=== PATIENT | female | born 1935 | race Caucasian/White ===

== ENCOUNTER → 2023-12-25 12:50 | Outpatient (REF) | payer MEDICARE, OTHER, SELFPAY | LOC: HWRCS 12:50 | PROVIDERS: ATTENDING PHYSICIAN Internal Medicine Cardiovascular Disease; FAMILY PHYSICIAN Nurse Practitioner Primary Care | DX: I48.0 Paroxysmal atrial fibrillation (principal) | CPT/HCPCS: 93306 ==

== ENCOUNTER 2024-09-18 01:38 | Inpatient (IN) | payer MEDICARE, OTHER, SELFPAY ==
[2024-09-17 18:19] VITALS: BP 157/57
[2024-09-17 18:53] LABS: % Basophils 0.6 % (0-2); % Eosinophils 0.9 % (0-6); % Immature Granulocytes 0.8 % (0-0.5); % Lymphocytes 16.6 % (20.5-51.1); % Monocytes 6.6 % (1.7-9.3); % Neutrophils 74.5 % (42.2-75.2); Absolute Basophils 0.1 10^3/uL (0-0.2); Absolute Eosinophils 0.1 10^3/uL (0-0.7); Absolute Immature Granulocytes 0.1 10^3/uL (0-0.05); Absolute Lymphocytes 1.4 10^3/uL (1.2-3.4); Absolute Monocytes 0.6 10^3/uL (0.1-0.6); Absolute Neutrophils 6.5 10^3/uL (1.4-6.5); Hematocrit 29.1 % (37.0-47.0); Hemoglobin 9.5 g/dL (12.0-16.0); Mean Corp Hgb Conc. 32.6 g/dL (33.0-37.0); Mean Corpuscular Hgb 29.5 pg (27.0-31.0); Mean Corpuscular Volume 90.4 fL (81.0-99.0); Nucleated Red Blood Cells % 0.5 %; Platelet Count 198 10^3/uL (130-400); Red Blood Cell Count 3.22 10^6/uL (4.20-5.40); Red Cell Dist. Width 15.9 % (11.5-14.5); White Blood Cell Count 8.7 10^3/uL (4.8-10.8)
[2024-09-17 19:05] LABS: Lactic Acid 1.4 mmol/L (0.7-2.0)
[2024-09-17 19:14] LABS: ALT (SGPT) 21 U/L (0-35); AST (SGOT) 29 U/L (14-36); Albumin 4.5 g/dl (3.5-5.0); Alkaline Phosphatase 59 U/L (38-126); Blood Urea Nitrogen 20 mg/dl (7-17); Calcium 9.3 mg/dl (8.4-10.2); Carbon Dioxide 28 mmol/L (22-30); Chloride 104 mmol/L (98-107); Glucose 132 mg/dl (70-99); Lipase 110 U/L (23-300); Potassium 4.3 mmol/L (3.5-5.1); Sodium 143 mmol/L (135-145); Total Bilirubin 0.5 mg/dl (0.2-1.3); Total Protein 6.7 g/dl (6.3-8.2); eGFR > 60.00
--- NOTE | 2024-09-17 20:39 | ED.GENMED ---
History of Present Illness
General
Chief Complaint: Abdominal Pain
Source: patient
Exam Limitations: none
Time Seen by Provider: 09/17/24 19:37
History of Present Illness
History of Present Illness:
This is a 88 year old female that comes in c/o abd pain and SOB. Daughter states that last night she was SOB and for the past couple of days she has been c/o abd pain. States that the abd pain has been on and off. States that she is occasionally
SOB, had diarrhea yesterday, has a headache and felt lightheaded. State that she occasionally has Urinary burning. Denies any fever, chills, vomiting.
Past History
Past History
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
(Myasthenia Gravis, Polymyositis, COVID-19, osteoporosis, glaucoma, bilateral nonarteritic ischemic optic neuropathies, oral thrush, Back and neck pain, Headache, ) and Other (Postconcussive syndrome, thymoma?, Postherpetic neuralgia, Hiatal
hernia, UTI, Glaucoma, )
ED Past Surgical History: Cardiac (Aortic valve replacement, CABG, loop recorder implant, Pacer), Cholecystectomy, Orthopedic (Kyphoplasty) and Other (Carpal tunnel release, right eye cataract extraction 2021)
Social History
Tobacco: Non-smoker
Alcohol: None
Drug: None
Personal:
Living: with family
Family History
Family History: Other (Reviewed and noncontributory)
Review of Systems
Review of Systems
All Other Systems: ROS reviewed and negative except as documented in HPI and ROS
Constitutional: Reports no symptoms; Denies fever or chills
EENT: Reports no symptoms
Respiratory: Reports trouble breathing; Denies cough
Cardiac: Reports chest pain
ABD/GI: Reports abdominal pain, nausea and diarrhea; Denies vomiting
: Reports dysuria (occasional); Denies frequency or urgency
Musculoskeletal: Reports no symptoms
Skin: Reports no symptoms
Neurological: Reports headache and other (Lightheaded); Denies dizzy
Psychiatric: Reports no symptoms
Phy Exam
General Physical Exam
General Presentation: no apparent distress
General age: appears stated age
General Skin: warm and dry
General Habitus: elderly
General Mental: alert
General Hydration: appears well hydrated
ENT Exam
ENT Exam: TM's normal, pharynx normal and neck supple
Cardiovascular Exam
Cardiovascular Exam: regular rate/rhythm, no edema and normal peripheral pulses
Pulmonary Exam
Pulmonary Exam: no respiratory distress, chest non tender, no rhonchi, no wheezing, no cough and other (Very fine crackles right base)
Gastrointestinal Exam
Gastrointestinal Exam: soft, no organomegaly, no pulsatile mass, non distended, tender (right sided tenderness with palpation) and other (Hyperactive bowel sounds)
Musculoskeletal Exam
Musculoskeletal Exam: full ROM and no edema
Skin Exam
Skin Exam: normal color, warm/dry and no rash
Psychiatric Exam
Psychiatric Exam: normal mood/affect
Scores
Heart Failure Risk
Heart Failure Risk Score: Yes
History of Stroke or TIA: Yes
History of intubation for respiratory distress: No
Heart rate on ED arrival >/= 110: No
SaO2 <90% on arrival on room air: No
HR >/=110 during 3min walk test (or too ill to perform test): Yes
ECG has acute ischemic changes: No
Urea >/=12mmol/L (BUN 33.6mg/dL): No
Serum CO2>/=35mmol/L: No
Troponin I or T elevated to NM Level (0.4mg/dL): No
NT-proBNP >/=5,000ng/L (5,000pg/ml): No
HF Risk Score: 3
Admission Status: HIGH RISK 15.9% Consider SNF treatment or admission to hospital
Course
Orders/Labs/Results
Orders:
Orders
09/17/24 18:45
Complete Blood Count/With Diff Urgent
Comprehensive Metabolic Panel Urgent
Lactic Acid Urgent
Lipase Urgent
09/17/24 20:37
CT Abd/pelvis W Iv Cont Urgent
Comment:
Reason For Exam: RIGHT SIDED ABD PAIN
CR Chest - 2 Views Urgent
Comment:
Reason For Exam: sob
09/17/24 20:38
0.9% Sodium Chloride 250 ml [Nss] 250 ml IV BOLUS
09/17/24 20:39
Ondansetron Injectable [Zofran] 4 mg IV NOW STA
09/17/24 20:46
Acetaminophen 1000MG/100Ml [Ofirmev] 1,000 mg in 100 ml IV ONCE
Acetaminophen IV Indication:: ED Narcotic Naive Pt-ONCE
09/17/24 20:48
Electrocardiogram (*1) Urgent
Reason for Study: Shortness of Breath
EKG- Treatment ONCE
09/17/24 20:55
NT-proBNP Urgent
Troponin I Urgent
09/17/24 22:24
COVID-19 Antigen Urgent
Source: Nasal Swab
09/17/24 23:20
Urinalysis Reflex To Culture Urgent
Date Specimen was Collected: 09/17/24
Time Specimen was Collected: 23:05
09/17/24 23:35
Ipratropium/Albuterol Sulfate [Duoneb] 3 ml .ROUTE .STK-MED ONE
Abnormal Lab Results
09/17/24
18:45
RBC 3.22 L 10^6/uL
(4.20-5.40)
Hgb 9.5 L g/dL
(12.0-16.0)
Hct 29.1 L %
(37.0-47.0)
MCHC 32.6 L g/dL
(33.0-37.0)
RDW 15.9 H %
(11.5-14.5)
MPV 12.0 H fL
(7.4-10.4)
Abs Immat Gran (auto) 0.1 H 10^3/uL
(0-0.05)
Immature Gran % 0.8 H %
(0-0.5)
Lymphocytes % 16.6 L %
(20.5-51.1)
BUN 20 H mg/dl
(7-17)
Glucose 132 H mg/dl
(70-99)
09/17/24 18:45
09/17/24 18:45
H/H slightly low. Dehydration. Hyperglycemia. Lactic acid normal at 1.4, Lipase normal at 110, Troponin <0.012, Pro-BNP 3010, Urine negative for infection. COVID negative,
Vital Signs
Initial and Last Documented VS:
Initial Vital Signs
Temp Pulse Resp BP Pulse Ox
99.0 F 78 20 157/57 96
09/17/24 18:19 09/17/24 18:19 09/17/24 18:19 09/17/24 18:19 09/17/24 18:19
Last Documented Vital Signs
Temp Pulse Resp BP Pulse Ox
99.0 F 75 24 137/71 98
09/17/24 18:19 09/17/24 23:45 09/17/24 23:29 09/17/24 23:29 09/17/24 23:45
MDM/Problems Addressed
Differential Diagnosis Includes:
UTi, viral GI syndrome,
MDM/Problems Addressed:
This is a 88 year old female that comes in with c/o abd pain. States that this started a couple of days ago and that last night she felt SOB.
Will check labs. CT abd/pelvis. Chest x-ray and medicate for headache pain.
Back into see patient and daughter. Explained that her CT of the abd was negative for anything acute. Chest X=ray shows mild CHF, Patient is negative for COVID, Urine is negative. Patient was up in chair and became hypoxic. Please on Oxygen. Will
admit and give IV Lasix. Hospitalist notified.
Chronic conditions affecting care: CAD
Acute Exacerbation and/or Progression of Chronic Illness: CAD
*Radiology
Radiology exam reviewed: preliminary read by ED provider (Chest-Cardiomegaly with slight increased vascular congestion. ) and radiology read reviewed (CT-NO signficiant acute abnormality identified in the abdomen or pelvis, as described above.
Chest-Mild CHF)
*Pulse Oximetry
Patient hypoxic: no
*International Manager Interpretation
Rate: International Manager- N/A
*Critical Care Note
Total Time (30-74mins, 75-104mins- exclusive of procedures): Not Applicable
ED Attending Note
-
Portions of this chart may have been created with voice recognition software.� Occasional wrong word or��sound alike� substitutions may have occurred due to the inherent limitations of voice recognition software.
Discharge Plan
Departure
Patient Disposition: Admit
Date of Disposition: 09/17/24
Time of Disposition: 23:55
Admit to: Telemetry
Presentation/result/management discussed w/ accepting MD/DO: Hospitalist
Patient with high blood pressure during this ER visit?: Yes
Condition: Good
Covid-19: Negative COVID-19
Discharge Problem:
CHF (congestive heart failure), Hypoxia
Prescriptions:
No Action
atorvastatin 20 mg Tablet
20 mg PO DAILY
mycophenolate mofetil [CellCept] 500 mg Tablet
500 mg PO DAILY
alprazolam [Xanax] 0.25 mg Tablet
0.25 mg PO BID
fentanyl 25 mcg/hr Patch 72 Hour
1 patch TRANSDERMAL Q72H
sertraline [Zoloft] 50 mg Tablet
50 mg PO DAILY
pregabalin [Lyrica] 150 mg Capsule
150 mg PO BID
Prolia 60 mg/mL Syringe
60 mg SC [id number]
Eliquis 5 mg Tablet
5 mg PO BID
aspirin 81 mg Capsule
81 mg PO DAILY
prednisolone acetate 1 % drops,suspension
1 drp LEFT EYE DAILYPRN PRN (Reason: glaucoma discomfort relief)
pantoprazole [Protonix] 40 mg tablet,delayed release (DR/EC)
40 mg PO BID
metoprolol succinate 50 mg tablet extended release 24 hr
50 mg PO DAILY
levothyroxine 100 mcg tablet
100 mcg PO DAILY AT 0700
atropine 1 % drops
1 drp LEFT EYE DAILYPRN PRN (Reason: eye pressure/discomfort)
multivitamin Tablet
1 tab PO DAILY
vitamin B complex Tablet
1 tab PO DAILY
docusate sodium [Colace] 100 mg Capsule
100 mg PO DAILY
Referrals:
Mercedes Duran CRNP [Family Provider] -
Interventions
Interventions:
*Risk Screen - Suicide Last Done: 09/17/24 21:09
*General Assessment Last Done: 09/17/24 18:19
*Neglect/Abuse Screening Last Done: 09/17/24 21:09
PR-Mhwngi-Qtribldlvu Assessment Last Done: 09/17/24 21:09
Discharge Date and Time
Print Language: QATARI
[2024-09-17] MEDS: ZOFRAN 4 MG IV (20:56)
[2024-09-17] MEDS: OFIRMEV 100 IV (20:58)
[2024-09-17] MEDS: NSS 250 IV (21:04)
[2024-09-17 22:42] LABS: COVID-19 Antigen Negative (Negative)
[2024-09-17 22:43] LABS: NT-proBNP 3010 pg/ml; Troponin I < 0.012 ng/ml
[2024-09-17 23:26] LABS: Urine Albumin Trace (Neg - Trace); Urine Bilirubin Negative (Negative); Urine Character Clear (Clear); Urine Color Yellow; Urine Glucose Negative (Negative); Urine Ketone Negative (Negative); Urine Leukocyte Negative (Negative); Urine Nitrite Negative (Negative); Urine Occult Blood Negative (Negative); Urine Specific Gravity 1.015 (<1.030); Urine Urobilinogen Negative (Neg - 1+)
[2024-09-17 23:29] VITALS: BP 137/71
[2024-09-18] VITALS (15 sets, daily range): BP systolic 80–128; BP diastolic 44–80; PULSE 76; O2SAT 94; BMI 23.8
--- NOTE | 2024-09-18 00:18 | HPS.HSE ---
Family Physician
-
Family Physician: Mercedes Duran
Chief Complaint
-
shortness of breath
History of Present Illness
This is a 88-year-old female with past medical history that is significant for myasthenia gravis, aortic stenosis status post aortic valve repair, CAD status post CABG, CHF with diastolic dysfunction, paroxysmal atrial fibrillation, sick sinus
syndrome status post pacemaker placement, frequent bouts of constipation who presents to the emergency department with more recent episodes of shortness of breath and abdominal discomfort.
According to daughter patient had recent episode of constipation which was treated with laxatives and then she developed diarrhea. Since then the patient has been having shortness of breath. Patient states she is unable to sleep mostly due to
abdominal discomfort but may also have orthopnea. She states she was wheezing and has a mild nonproductive cough. 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 She denies having any chest
pain at rest. She denies diaphoresis. She denies palpitations nausea or vomiting. She has not had any fevers or chills. Has been no known sick contacts. She states that she has had intermittent lower extremity swelling but denies this. She was
on diuretics at some point in the past but has not been on any diuretics lately.
In the ED she had a temp of 99, blood pressure was 137/71 with a pulse rate of 75. ECG shows AV paced rhythm at [address] or T wave changes. She does have PVCs. Troponin was negative at 0.012. BNP was elevated at over 3000. CBC
was unchanged from prior with known chronic anemia and hemoglobin of 9.5. Chemistries were unremarkable. Chest x-ray shows interstitial edema consistent with CHF.
Medical History
Past Medical History
Past Medical History: Reports Arrhythmia (Proximal atrial fibrillation status post pacemaker), CAD, Hypothyroidism, Valvular Disease (Aortic stenosis status post bioprosthetic aortic valve replacement) and Other (Myasthenia gravis)
Past Surgical History: Reports Cardiac (Aortic valve replacement, CABG)
Social History
Tobacco: Non-smoker
Alcohol: None
Drug: None
Personal: Single
Living: With Family
Employment: Retired
Family History
Family History: Not pertinent
Allergies / Home Medications
Allergies reflects when Allergies were last updated in [employer].
Home Medications with original date entered in [employer]
Allergy/Medication List:
Allergies
Allergy/AdvReac Type Severity Reaction Status Date / Time
ranitidine [From Zantac] Allergy Anaphylaxis Verified 09/17/24 18:19
codeine AdvReac Nausea Verified 09/17/24 18:19
Home Medications
alprazolam 0.25 mg tablet (Xanax) 0.25 mg PO BID ANXIETY 07/29/22
atorvastatin 20 mg tablet 20 mg PO DAILY High cholesterol 07/29/22
denosumab 60 mg/mL subcutaneous syringe (Prolia) 60 mg SC [id number] Bone health 07/29/22
fentanyl 25 mcg/hr transdermal patch 1 patch transdermal Q72H Pain 07/29/22
mycophenolate mofetil 500 mg tablet (CellCept) 500 mg PO DAILY Myasthenia gravis 07/29/22
pregabalin 150 mg capsule (Lyrica) 150 mg PO BID Neurological Condition 07/29/22
sertraline 50 mg tablet (Zoloft) 50 mg PO DAILY Mental Health/Anxiety 07/29/22
apixaban 5 mg tablet (Eliquis) 5 mg PO BID Blood clot prevention/tx 10/07/22
aspirin 81 mg capsule 81 mg PO DAILY Blood clot prevention/tx 10/07/22
atropine 1 % eye drops 1 drp LEFT EYE DAILYPRN PRN eye pressure/discomfort 10/09/22
levothyroxine 100 mcg tablet 100 mcg PO DAILY AT 0700 Thyroid 10/09/22
metoprolol succinate 50 mg tablet,extended release 24 hr 50 mg PO DAILY Blood pressure 10/09/22
pantoprazole 40 mg tablet,delayed release (Protonix) 40 mg PO BID Gastrointestinal issue 10/09/22
prednisolone acetate 1 % eye drops,suspension 1 drp LEFT EYE DAILYPRN PRN glaucoma discomfort relief 10/09/22
docusate sodium 100 mg capsule (Colace) 100 mg PO DAILY 08/07/23
multivitamin 1 tab PO DAILY 08/07/23
vitamin B complex 1 tab PO DAILY 08/07/23
Review of Systems
-
History Source: Patient and Family
Constitutional: Reports No Symptoms
EENT: Reports No Symptoms
Respiratory: Reports Cough, Trouble Breathing and Other (Wheezing)
Cardiac: Reports No Symptoms
Abdomen/GI: Reports Abdominal Pain
: Reports No Symptoms
Musculoskeletal: Reports No Symptoms
Skin: Reports No Symptoms
Neurological: Reports No Symptoms
Endocrine: Reports No Symptoms
Hematologic/Lymphatic: Reports No Symptoms
Psych: Reports No Symptoms
Physical Exam
Vital Signs
Vital Signs
Temp Pulse Resp BP Pulse Ox
99.0 F 75 24 137/71 97
09/17/24 18:19 09/17/24 23:45 09/17/24 23:29 09/17/24 23:29 09/17/24 23:51
Physical Exam
General: No Apparent Distress and Appears Chronically Ill
HEENT: NormoCephalic, Anicteric, Moist mucous membranes and PERRLA (Blind in left eye, poor vision in right eye)
Respiratory: Wheezes (Faint wheezes throughout the lung segura), Crackles, Non Labored Respirations and Decreased Breath Sounds
Cardiac: S1/S2 and Regular Rhythm
Breast: Deferred by me
GI: Soft, Non Tender, Non Distended and Normal Bowel Sounds
Rectal: Deferred by Provider
Genito-urinary: Deferred by me
Musculoskeletal: No Clubbing, No Cyanosis and No Edema
Skin: Warm
Neuro: AO x 3
Hematologic/Lymphatic: No Lymphadenopathy
Psych: Calm
Laboratory Results
-
09/17/24 18:45
09/17/24 18:45
Laboratory Results
Lactic Acid 1.4 mmol/L (0.7-2.0) 09/17/24 18:45
Total Bilirubin 0.5 mg/dl (0.2-1.3) 09/17/24 18:45
AST 29 U/L (14-36) 09/17/24 18:45
ALT 21 U/L (0-35) 09/17/24 18:45
Alkaline Phosphatase 59 U/L (38-126) 09/17/24 18:45
Troponin I < 0.012 ng/ml 09/17/24 20:55
Lipase 110 U/L (23-300) 09/17/24 18:45
Data Reviewed
-
Diagnostic Radiology: Image Personally Visualized and interpreted
Medical Tests (Nuc Med, Echo, EKG etc): Image Personally Visualized and interpreted
Lab Data: Labs Reviewed by me
Old Records: Reviewed
Impression/Plan
-
IMPRESSION:
88-year-old with history of aortic stenosis status post aortic valve replacement, history of CHF with most recent EF of 65 to 70% and tricuspid regurg, myasthenia gravis, paroxysmal atrial fibrillation and sick sinus syndrome status post pacemaker
placement who presents to the emergency department with shortness of breath and generalized discomfort. She is mildly hypoxic requiring 2 L of oxygen. X-ray shows interstitial edema concern with mild CHF. The BNP is elevated at 3000. Troponin is
negative. ECG shows the AV paced rhythm at a rate of 61. There is no leukocytosis and the patient has been afebrile. Suspect CHF with diastolic heart failure. She was previously on diuretics (torsemide) but this has been long discontinued. She
has no peripheral edema.
PLAN:
1. CHF - CHF exacerbation likely diastolic heart failure. No obvious precipitant. Mild volume overload.
- admit to telemetry
- lasix 40mg iv bid with daily weights and i/os
- fluid restriction
- echo in am, tsh
- continue metoprolol
- cardiology consult
-
2. MG - Long standing on immunosuppression
- continue cellcept
- supportive care
3. pAFIB - paced rhythm. Stable rate
- continue metoprolol
- continue eliquis
4. Chronic generalized weakness
- PT
DVT PPX - on eliquis
Code Status - DNR
[2024-09-18] MEDS: LASIX 20 MG IV (00:41)
[2024-09-18] MEDS: XANAX 0.25 MG PO ×3 (01:51→20:21)
[2024-09-18] MEDS: LYRICA 150 MG PO ×3 (02:04→20:19)
[2024-09-18 06:48] LABS: Blood Urea Nitrogen 17 mg/dl (7-17); Calcium 8.7 mg/dl (8.4-10.2); Carbon Dioxide 32 mmol/L (22-30); Chloride 102 mmol/L (98-107); Glucose 95 mg/dl (70-99); Phosphorus 3.8 mg/dl (2.5-4.5); Sodium 143 mmol/L (135-145); eGFR > 60.00
[2024-09-18 07:16] LABS: TSH Reflex To Free T4 3.33 uIU/ml (0.47-4.68)
[2024-09-18] MEDS: PROTONIX 40 MG PO ×2 (07:35→20:21)
[2024-09-18] MEDS: TOPROL XL 50 MG PO (07:35)
[2024-09-18] MEDS: ELIQUIS 5 MG PO ×2 (07:35→20:18)
[2024-09-18] MEDS: ZOLOFT 50 MG PO (07:35)
[2024-09-18] MEDS: LOW STRENGTH ASPIRIN 81 MG PO (07:36)
[2024-09-18] MEDS: LIPITOR 20 MG PO (07:36)
[2024-09-18] MEDS: SYNTHROID 100 MCG PO (07:36)
[2024-09-18] MEDS: CELLCEPT 500 MG PO (07:37)
[2024-09-18] MEDS: COLACE 100 MG PO (07:37)
--- NOTE | 2024-09-18 08:01 | PHANOTE ---
med rec note- waiting daughter to come by or return phone. her number is [phone]
[2024-09-18] MEDS: LASIX 40 MG IV (08:24)
--- NOTE | 2024-09-18 09:26 | CON.CAR ---
Addendum entered and electronically signed by Luke No MD (Ellie) 09/18/24 11:52:
I saw and examined the patient.
The PLANOGRAMMER's note was reviewed and I agree with the note.
Comment:
88-year-old female with paroxysmal atrial fibrillation on Eliquis, CAD with CABG and tissue AVR 2014, hx thymoma resection, SSS with pacemaker in place, CVA, myasthenia gravis, HLD, and hypothyroidism who is here for evaluation of SOB and abdominal
pain. History is largely obtained from patient's daughter as patient is confused. Daughter reports that she started having abdominal pain and shortness of breath over the past few days. She was unable to sleep for the past 2 nights due to
shortness of breath. On admission her NT proBNP was elevated and chest x-ray was concerning for pulmonary edema. She was given 20 mg IV Lasix and then an additional 40 mg IV Lasix today. She and her daughter are unsure of her dry weight. On exam
she is in no acute distress, she has a regular heart rate with an irregular rhythm, no murmurs rubs or gallops. She has no lower extremity edema. Crackles at the bases of the lungs bilaterally. Labs are notable for elevated NT proBNP and
creatinine 0.6. Twelve-lead ECG shows an AV paced rhythm. Echocardiogram is pending. Last echocardiogram from December 2023 revealed normal LVEF, moderate MR, normal bioprosthetic AV, moderate to severe TR, PASP 35 mmHg.
In summary this is an 88-year-old woman with paroxysmal A-fib and CAD who presents with HFpEF exacerbation. For her HFpEF exacerbation, we will continue IV diuresis with Lasix 40 mg twice daily. She is not on any home diuretics. We will
reestablish a dry weight as she does not know hers. She will likely need some diuretics on discharge. We will follow-up a repeat echocardiogram. We will also interrogate her device to see if she has a rhythm abnormality that precipitated this
exacerbation. For her atrial fibrillation, we will continue apixaban 5 mg twice daily and metoprolol 50 mg daily. For her CAD, continue aspirin 81 mg and atorvastatin 20 mg.
Original Note:
Consultation
Consultation Request
Date/Time Consultation Requested: 09/18/247
Date/Time Consultation Performed: 09/18/24 0920
Requesting Provider: Dr. Danielle
Performing Provider: Letha APONTE for Dr. No
Reason for Consultation: CHF
Medical History
-
Chief Complaint: SOB, abdominal pain
History of Present Illness:
88 y/o female with PAF on Eliquis, CAD with CABG and tissue AVR 2014, hx thymoma resection, SSS with pacemaker in place, CVA, myasthenia gravis, HLD, and hypothyroidism who is here for evaluation of SOB and abdominal per chart. Patient does not
recall. CXR and PLANOGRAMMER were suggestive of CHF and she is admitted for diuresis. She is on O2 by [place] since O2 sats were in the high 80's.
Past Medical History
Past Medical History: Arrhythmias, CAD, CVA, Hypercholesterolemia, Hypothyroidism and Other (myasthenia gravis)
Social History
Tobacco: Non-Smoker
Living: With Family
Family History
Family History: Reviewed & Not Pertinent
Allergies / Home Medications
Allergy/AdvReac Type Severity Reaction Status Date / Time
ranitidine [From Zantac] Allergy Anaphylaxis Verified 09/17/24 18:19
codeine AdvReac Nausea Verified 09/17/24 18:19
�Medication �Instructions �Recorded �Confirmed �Type
alprazolam 0.25 mg tablet (Xanax) 0.25 mg PO BID ANXIETY 07/29/22 09/18/24 History
atorvastatin 20 mg tablet 20 mg PO DAILY High cholesterol 07/29/22 09/18/24 History
denosumab 60 mg/mL subcutaneous 60 mg SC [id number] Bone health 07/29/22 09/18/24 History
syringe (Prolia)
mycophenolate mofetil 500 mg 500 mg PO DAILY Myasthenia gravis 07/29/22 09/18/24 History
tablet (CellCept)
pregabalin 150 mg capsule (Lyrica) 150 mg PO BID Neurological 07/29/22 09/18/24 History
Condition
sertraline 50 mg tablet (Zoloft) 50 mg PO DAILY Mental 07/29/22 09/18/24 History
Health/Anxiety
apixaban 5 mg tablet (Eliquis) 5 mg PO BID Blood clot 10/07/22 09/18/24 History
prevention/tx
levothyroxine 100 mcg tablet 100 mcg PO DAILY AT 0700 Thyroid 10/09/22 09/18/24 History
metoprolol succinate 50 mg 50 mg PO DAILY Blood pressure 10/09/22 09/18/24 History
tablet,extended release 24 hr
pantoprazole 40 mg tablet,delayed 40 mg PO BID Gastrointestinal issue 10/09/22 09/18/24 History
release (Protonix)
prednisolone acetate 1 % eye 1 drp LEFT EYE DAILYPRN PRN 10/09/22 09/18/24 History
drops,suspension glaucoma discomfort relief
aspirin 81 mg tablet,delayed 81 mg PO DAILY 09/18/24 09/18/24 History
release
fentanyl 25 mcg/hr transdermal 1 patch transdermal Q72H 09/18/24 09/18/24 History
patch
Review of Systems
-
Unable to obtain full review of systems at this time due to: Other (patient forgetful)
History Source: Other (chart)
Respiratory: Trouble Breathing
Abdomen/GI: Abdominal Pain
Physical Exam
Vital Signs
Temp Pulse Resp BP Pulse Ox
99.0 F 60 18 111/69 95
09/17/24 18:19 09/18/24 06:09 09/18/24 06:09 09/18/24 06:09 09/18/24 02:44
Lab Results
09/17/24 18:45
09/18/24 06:08
Troponin I < 0.012 ng/ml 09/17/24 20:55
Yel-E-Bnqqrqlxcbh Pept 3010 pg/ml 09/17/24 20:55
Physical Exam
General: Well Developed, Well Nourished and No Apparent Distress
HEENT: Normocephalic and Anicteric
Respiratory: Crackles (b/l bases)
Cardiac: Regular Rhythm
Musculoskeletal: Edema (trace BLE edema)
Skin: Warm and Dry
Neuro: Awake, Alert and Other (forgetful and tired)
Psych: Calm
Impression / Plan
-
Acute HFpEF:
-patient has known moderate to severe TR, not on diuretic as OP
-agree with IV Lasix, which requires intensive monitoring
-will update echo with hx AVR and new HF
-check weights daily- starting now- order placed. Also I/O's, limit sodium, etc.
PAF:
-stable
-continue metoprolol and Eliquis
-follow telemetry
Pacemaker:
-stable on OP checks
-follow telemetry
Abdominal pain:
-CT scan looked fine
-w/u per primary
AVR:
-stable on most recent echo, but will update
Data Reviewed
-
EKG: Tracing Personally Visualized and interpreted (AV paced, PVC)
Radiology: Report Reviewed by me (CXR: Mild CHF.)
CT Scan: Report Reviewed by me (No significant acute abnormality identified in the abdomen or pelvis, as described above.)
Medical Tests (Nuc Med, Echo etc): Report Reviewed by me (Echo 12/25/23: EF 65-70%. Severely dilated left atrium. Moderately dilated right atrium. Moderate mitral regurgitation. Well-seated bioprosthetic aortic valve with peak/mean gradients of 15/8
mmHg. Moderate to severe tricuspid regurgitation.)
Labs: Labs Reviewed by me
--- NOTE | 2024-09-18 09:32 | W.PN.HOSP.TC ---
Today's Communication/Plan
-
cardiology consult, echo today
Assessment / Plan
Assessment / Plan
88yo F with PMH aortic stenosis s/p valve replacement, CHF, myasthenia gravis, paroxysmal afib, sick sinus syndrome s/p pacemaker who presented to ED 09/17/24 for shortness of breath and abdominal pain.
CHF exacerbation
- BNP 3000
- Fluid restriction, low Na diet
- Strict I&Os, daily weights
- Continue lasix 40mg IV BID
- Echo today
- Cardiology consulted, appreciate recs
- Continue metoprolol
Paroxysmal atrial fibrillation
Sick sinus syndrome s/p pacemaker
- NSR, rate is paced
- Continue eliquis and metoprolol
Myasthenia gravis
- Continue home mycophenolate mofetil
Hypothyroidism
- continue home levothyroxine 100mcg qd
Chronic generalized weakness
- Uses walker at home, lives independently at longterm community
- PT/OT
Code status: DNR
VTE ppx: eliquis
Diet: Low sodium
Dispo planning: pending PT eval, timing tbd
Anticipated Discharge: 24 - 48 hours
Subjective/Interval History
-
Date of Service: September 18, 2024
Reports her shortness of breath and abdominal pain are improving. Reports chronic R shoulder pain. Denies lightheadedness, dizziness, chest pain, nausea, vomiting, diarrhea, constipation. Reports last BM yesterday, no black or bloody stools.
Tolerating PO diet. Ambulates with walker at home, lives in longterm community without assistance.
Objective Data
-
Labs:
Laboratory Results
09/18/24
06:08
Sodium 143
Potassium 4.0
Chloride 102
Carbon Dioxide 32 H
BUN 17
Creatinine 0.6
Glucose 95
Calcium 8.7
Vital Signs:
Vital Signs
Temp Pulse Resp BP Pulse Ox
99.0 F 60 18 111/69 95
09/17/24 18:19 09/18/24 06:09 09/18/24 06:09 09/18/24 06:09 09/18/24 02:44
Review of Systems
-
History Source: Patient
All other systems: Reviewed and negative
Physical Exam
-
General: Well Developed, No Apparent Distress, Comfortable, Conversant (speaks softly) and Other (elderly appears stated age)
HEENT: Normocephalic and Atraumatic
Respiratory: Non Labored Respirations and Decreased Breath Sounds
Cardiac: Regular Rhythm, S1/S2 and Other (paced rate)
GI: Soft, Nontender, Nondistended and Normal Bowel Sounds
Musculoskeletal: No Edema and Other (R shoulder tender to palpation)
Skin: Warm and Dry
Neuro: Awake, Alert, Oriented (oriented to self/age; knows she is in hospital, unsure which one; knows season is fall, unsure date) and Nonfocal/Grossly Intact
Psych: Calm and Intact Judgement/Insight
Data Reviewed
-
Diagnostic Radiology: Image personally visualized and interpreted and Report Reviewed by me
CT Scan: Image personally visualized and interpreted and Report Reviewed by me
Labs: Labs Reviewed by me
--- NOTE | 2024-09-18 10:46 | W.PN.UPDATE ---
Update Note
Progress Note Update
I saw and evaluated the patient. I reviewed the resident�s note and agree with findings and plan as documented in the resident�s note.
No new complaints.
Gen: NAD, awake and alert, NCAT
Eyes: EOMI, PERRLA, no scleral icterus.
Neck: supple. +JVD
CV: RRR, +S1/S2, no m/r/g.
Resp: rales B/L anteriorly
Skin: No rashes. Very trace B/L ankle edema.
Neuro: CN 2-12 intact, non-focal.
Psych: Normal mood and affect.
CXR: Mild CHF.
Acute HFpEF:
-proBNP 3010, NEG trop
-currently on 2L NC O2
-cont IV lasix
-daily wts, I/Os, FR
-check echo
-cards following
-TSH normal
-cont BB
Myasthenia gravis: Continue CellCept
PAF: paced rhythm. cont BB/Eliquis
Hypothyroidism: Continue Levoxyl, TSH normal
Chronic generalized weakness: PT/OT
Patient's daughter updated at bedside.
DNR/Eliquis
--- NOTE | 2024-09-18 14:50 | W.PN.UPDATE ---
Update Note
Progress Note Update
Cardiac device interrogated and per rep, there may be some undersensing, but patient has likely been in afib 1-2 weeks. It is rate-controlled. Once she is optimized from volume status, reassess rhythm.
[2024-09-18] MEDS: LASIX IV (17:00)
--- NOTE | 2024-09-18 19:13 | PTCARENOTE ---
Received patient from ED AAOx2. 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 Pt's manual B/P 84/54. Dr. Garibay aware. IV tree held this evening as per MD. Pt offered no complaints. Made patient comfortable. Cont to assess patient status.
[2024-09-19] VITALS (7 sets, daily range): BP systolic 90–158; BP diastolic 48–82; PULSE 64; BMI 25.7
[2024-09-19] MEDS: TYLENOL 650 MG PO ×2 (05:41→13:59)
[2024-09-19] MEDS: SYNTHROID 100 MCG PO (05:43)
[2024-09-19 08:10] LABS: Hematocrit 29.8 % (37.0-47.0); Hemoglobin 9.7 g/dL (12.0-16.0); Mean Corp Hgb Conc. 32.6 g/dL (33.0-37.0); Mean Corpuscular Hgb 29.8 pg (27.0-31.0); Mean Corpuscular Volume 91.4 fL (81.0-99.0); Mean Platelet Volume 12.5 fL (7.4-10.4); Platelet Count 200 10^3/uL (130-400); Red Blood Cell Count 3.26 10^6/uL (4.20-5.40); Red Cell Dist. Width 15.7 % (11.5-14.5); White Blood Cell Count 6.6 10^3/uL (4.8-10.8)
[2024-09-19 08:37] LABS: Blood Urea Nitrogen 21 mg/dl (7-17); Calcium 9.3 mg/dl (8.4-10.2); Carbon Dioxide 33 mmol/L (22-30); Chloride 98 mmol/L (98-107); Estimated Creatinine Clearance 45 ml/min; Glucose 91 mg/dl (70-99); Iron 63 ug/dl (37-170); Potassium 3.8 mmol/L (3.5-5.1); Sodium 142 mmol/L (135-145); eGFR > 60.00
[2024-09-19 08:45] LABS: Percent Saturation 20 % (20-50); Total Iron Binding Capacity 305 ug/dl (265-497)
[2024-09-19 09:00] LABS: Ferritin 98.6 ng/ml (11.1-264.0)
--- NOTE | 2024-09-19 09:31 | W.PN.CD ---
Today's Communication / Plan
-
-Echocardiogram yesterday revealed no significant change compared to previous.
-Patient was not on a diuretic as OP.
-Recommend discharging home on Lasix 20 mg PO daily.
-Outpatient follow-up with cardiology (Dr. Mckeon).
Impression / Plan
-
Acute HFpEF:
-Echocardiogram yesterday revealed no significant change compared to previous -- LVEF of 67%, stage II diastolic dysfunction, moderate mitral regurgitation, and moderate to severe tricuspid regurgitation (PASP 28 mmHg); bioprosthetic aortic valve
with normal peak/mean gradients of 9/5 mmHg.
-Patient was not on a diuretic as OP.
-Recommend discharging home on Lasix 20 mg PO daily.
-Outpatient follow-up with cardiology (Dr. Mckeon).
PAF:
-stable
-continue metoprolol and Eliquis
Pacemaker:
-stable on OP checks
Abdominal pain:
-CT scan looked fine
-w/u per primary
AVR:
-stable on most echo
Physical Exam
Vital Signs/Labs
Vital Signs
Temp Pulse Resp BP Pulse Ox
98.6 F 71 18 97/50 96
09/19/24 07:25 09/19/24 07:25 09/19/24 07:25 09/19/24 07:25 09/19/24 07:25
09/18/24 09/19/24 09/20/24
06:59 06:59 06:59
Actual Weight 63.645 kg
09/19/24 07:13
09/19/24 07:13
Magnesium 2.0 mg/dl (1.6-2.3) 09/19/24 07:13
09/17/24
20:55
[id number] Pept 3010
LAB Results
10/30/24
20:55
Troponin I < 0.012
Physical Exam
Constitutional: No acute distress and Comfortable
EENT: Anicteric
Cardiovascular: Rhythm & rate is regular, Pedal edema is absent, Systolic murmur present (/) and S1S2 is normal
Respiratory: Respiratory effort normal and Lungs clear to auscul.
GI: Soft
Other: Skin (Warm, dry, intact)
Data Reviewed
-
Date of Service: September 19, 2024
EKG: Tracing Personally Visualized and interpreted (Telemetry: AV paced)
Echo: Report Reviewed by me (LVEF 67%, moderate to severe TR)
Labs: Labs Reviewed by me
[2024-09-19] MEDS: LOW STRENGTH ASPIRIN 81 MG PO (09:55)
[2024-09-19] MEDS: PROTONIX 40 MG PO (09:55)
[2024-09-19] MEDS: CELLCEPT 500 MG PO (09:56)
[2024-09-19] MEDS: TOPROL XL 50 MG PO (09:56)
[2024-09-19] MEDS: LYRICA 150 MG PO (09:56)
[2024-09-19] MEDS: XANAX 0.25 MG PO (09:56)
[2024-09-19] MEDS: ZOLOFT 50 MG PO (09:56)
[2024-09-19] MEDS: LIPITOR 20 MG PO (09:56)
[2024-09-19] MEDS: ELIQUIS 5 MG PO (09:56)
[2024-09-19] MEDS: COLACE 100 MG PO (09:56)
[2024-09-19] MEDS: LASIX 40 MG IV (09:57)
[2024-09-19] MEDS: FLUSH (NSS) 2 FLUSH IV (09:58)
--- NOTE | 2024-09-19 10:26 | W.PN.HOSP.TC ---
Addendum entered and electronically signed by Marce Dueñas MD 09/19/24 15:21:
I saw and evaluated the patient independently. I reviewed the resident�s note and agree with findings and plan as documented by Dr. Wilkerson.
GENERAL: well developed, well nourished, in no apparent distress
HEENT: NC/AT O2 NC in place
HEART: regular rate and rhythm, +S1, +S2
LUNGS : clear to auscultation bilaterally
ABDOM: soft, nontender, nondistended, + bowel sounds
EXT: no cyanosis, clubbing, or edema--right neck and shoulder with pain to palpation
NEUROLOGIC: grossly intact
acute diastolic (preserved EF) CHF exacerbation--BNP 3K on admission--ECHO no changes--cont lasix 20 mg daily at d/c--apprec cards- Fluid restriction 48oz, low Na diet- Strict I&Os, daily weights--apprec cards--cont metoprolol
Paroxysmal atrial fibrillation/Sick sinus syndrome s/p pacemaker- Continue eliquis and metoprolol
Myasthenia gravis- Continue home mycophenolate mofetil
Hypothyroidism- continue home levothyroxine 100mcg qd
Chronic generalized weakness--await CM input--PT rec SNF--unsure if pt will agree- Uses walker at home, lives independently at [facility]
Neck pain- suspect musculoskeletal, trial heating pad
Chronic R shoulder pain, neuropathy- continue home fentanyl patch, lyrica
Hypothyroidism- continue home synthroid 100mcg qd
Code status: DNR
DVT proph
Original Note:
Today's Communication/Plan
-
continue lasix 20mg po qd, PT, discharge planning in progress
Assessment / Plan
Assessment / Plan
88yo F with PMH aortic stenosis s/p valve replacement, CHF, myasthenia gravis, paroxysmal afib, sick sinus syndrome s/p pacemaker who presented to ED 09/17/24 for shortness of breath and abdominal pain.
CHF exacerbation
- BNP 3000
- Fluid restriction 48oz, low Na diet
- Strict I&Os, daily weights
- Echo LVEF 67%, dyastolic dysfunction, mod MR, mod-sev TR, well seated bioprosthetic aortic valve; overall stable echo compared to Dec 2023. Reviewed with patient and daughter.
- Cardiology consulted, appreciate recs. Transition lasix to 20mg po qd and plan to continue at discharge. Patient will need outpatient cardiology follow up (Dr. Mckeon)
- Continue metoprolol
Paroxysmal atrial fibrillation
Sick sinus syndrome s/p pacemaker
- NSR, rate is paced
- Continue eliquis and metoprolol
Myasthenia gravis
- Continue home mycophenolate mofetil
Hypothyroidism
- continue home levothyroxine 100mcg qd
Chronic generalized weakness
- Uses walker at home, lives independently at [facility]
- PT recommended skilled rehab at discharge (therapy 1-2h/d)
- Consult CM for discharge planning
Abdominal pain- resolved
Neck pain- suspect musculoskeletal, trial heating pad
Chronic R shoulder pain, neuropathy- continue home fentanyl patch, lyrica
Hypothyroidism- continue home synthroid 100mcg qd
Code status: DNR
VTE ppx: eliquis
Diet: Low sodium, cholesterol lowering
Dispo planning: SNF when able, timing tbd
Anticipated Discharge: 24 - 48 hours
Subjective/Interval History
-
Date of Service: September 19, 2024
No acute events overnight. Complains of neck stiffness and pain this morning, she says this is more than baseline. Reports chronic R shoulder pain. Denies dizziness, chest pain, shortness of breath, nausea, vomiting, diarrhea, constipation,
abdominal pain. Tolerating PO diet.
Objective Data
-
Labs:
Laboratory Results
09/19/24
07:13
WBC 6.6
Hgb 9.7 L
Hct 29.8 L
Plt Count 200
Sodium 142
Potassium 3.8
Chloride 98
Carbon Dioxide 33 H
BUN 21 H
Creatinine 0.7
Glucose 91
Calcium 9.3
Vital Signs:
Vital Signs
Temp Pulse Resp BP Pulse Ox
98.6 F 71 18 97/50 96
09/19/24 07:25 09/19/24 07:25 09/19/24 07:25 09/19/24 07:25 09/19/24 07:25
I&O
09/18/24 09/19/24 09/20/24
06:59 06:59 06:59
Intake Total 0 / 0
Balance 0 / 0
Review of Systems
-
History Source: Patient
All other systems: Reviewed and negative
Physical Exam
-
General: Well Developed, No Apparent Distress, Comfortable, Conversant (speaks softly) and Other (elderly appears stated age)
HEENT: Normocephalic, Atraumatic, Oxygen (2L NC) and Other (neck tender to palpation R paraspinal region, normal ROM)
Respiratory: Wheezes (forced expiratory wheezes), Non Labored Respirations and Decreased Breath Sounds
Cardiac: Regular Rhythm, S1/S2 and Other (paced rate)
GI: Soft, Nontender, Nondistended and Normal Bowel Sounds
Musculoskeletal: No Edema and Other (R shoulder tender to palpation)
Skin: Warm and Dry
Neuro: Awake, Alert, Oriented and Nonfocal/Grossly Intact
Psych: Calm and Intact Judgement/Insight
Data Reviewed
-
Diagnostic Radiology: Image personally visualized and interpreted and Report Reviewed by me
CT Scan: Image personally visualized and interpreted and Report Reviewed by me
Medical Tests (Nuc Med, Echo etc): Report Reviewed by me, Discussed with Nurse and Discussed with Patient
Labs: Labs Reviewed by me, Discussed with Patient and Discussed with Family
[2024-09-19] MEDS: DURAGESIC 25 MCG/HR PATCH 1 PATCH TRANSDERM (11:00)
--- NOTE | 2024-09-19 16:41 | CM ---
CM met with Renetta and her daughter at bedside to complete IA.
Patient lives alone in a 1 story home with ramp to enter
Patient uses a rollator and is independent with adls. Her daughter assists with showering.
Patient known to [facility] care, referral placed.
PT recommended skilled rehab, patient declined. Daughter aware.
PCP: Nurse PractitionerEri Duran
Pharmacy: [facility]
Plan: home with [facility]
fax [phone]
[2024-09-19] MEDS: ATIVAN 0.5 MG IV (20:43)
[2024-09-19] MEDS: NSS (PRESERVATIVE FREE) 0.25 ML IV (20:43)
[2024-09-19] MEDS: ELIQUIS PO (22:28)
[2024-09-19] MEDS: PROTONIX PO (22:28)
[2024-09-19] MEDS: XANAX PO (22:28)
[2024-09-19] MEDS: LYRICA PO (22:28)
[2024-09-20 03:00] VITALS: BP 118/52
[2024-09-20 06:00] VITALS: BMI 26.5
[2024-09-20 07:34] LABS: Hematocrit 27.8 % (37.0-47.0); Hemoglobin 9.5 g/dL (12.0-16.0); Mean Corp Hgb Conc. 34.2 g/dL (33.0-37.0); Mean Corpuscular Volume 90.8 fL (81.0-99.0); Mean Platelet Volume 11.6 fL (7.4-10.4); Platelet Count 168 10^3/uL (130-400); Red Blood Cell Count 3.06 10^6/uL (4.20-5.40); Red Cell Dist. Width 15.3 % (11.5-14.5)
[2024-09-20 07:35] VITALS: BP 117/57
[2024-09-20 07:49] LABS: Blood Urea Nitrogen 31 mg/dl (7-17); Calcium 9.3 mg/dl (8.4-10.2); Carbon Dioxide 27 mmol/L (22-30); Chloride 102 mmol/L (98-107); Estimated Creatinine Clearance 59 ml/min; Glucose 93 mg/dl (70-99); Magnesium 2.2 mg/dl (1.6-2.3); Sodium 142 mmol/L (135-145); eGFR > 60.00
[2024-09-20] MEDS: ELIQUIS 5 MG PO (09:52)
[2024-09-20] MEDS: PROTONIX 40 MG PO (09:52)
[2024-09-20] MEDS: LOW STRENGTH ASPIRIN 81 MG PO (09:52)
[2024-09-20] MEDS: LYRICA 150 MG PO (09:52)
[2024-09-20] MEDS: ZOLOFT 50 MG PO (09:52)
[2024-09-20] MEDS: CELLCEPT 500 MG PO (09:52)
[2024-09-20] MEDS: TYLENOL 650 MG PO (09:53)
[2024-09-20] MEDS: SYNTHROID 100 MCG PO (09:53)
[2024-09-20] MEDS: TOPROL XL 50 MG PO (09:53)
[2024-09-20] MEDS: COLACE 100 MG PO (09:53)
[2024-09-20] MEDS: LIPITOR 20 MG PO (09:53)
[2024-09-20] MEDS: LASIX 20 MG PO (09:54)
[2024-09-20 11:35] VITALS: BP 115/67
--- NOTE | 2024-09-20 14:18 | W.PN.HOSP.TC ---
Today's Communication/Plan
-
if can reach family--OK for d/c
Assessment / Plan
Assessment / Plan
pt is an 88 year old female
acute diastolic (preserved EF) CHF exacerbation--BNP 3K on admission--ECHO no changes--cont lasix 20 mg daily at d/c--apprec cards- Fluid restriction 48oz, low Na diet- Strict I&Os, daily weights--apprec cards--cont metoprolol
Paroxysmal atrial fibrillation/Sick sinus syndrome s/p pacemaker- Continue eliquis and metoprolol
Myasthenia gravis- Continue home mycophenolate mofetil
Hypothyroidism- continue home levothyroxine 100mcg qd
Chronic generalized weakness--apprec CM input--home with VN, pt does not want SNF
Neck pain- suspect musculoskeletal, trial heating pad
Chronic R shoulder pain, neuropathy- continue home fentanyl patch, lyrica
Hypothyroidism- continue home synthroid 100mcg qd
Code status: DNR
DVT proph
Anticipated Discharge: Today
Subjective/Interval History
-
Date of Service: September 20, 2024
pt seems upset that her daughter is not here
Objective Data
-
Labs:
Laboratory Results
09/20/24
07:06
WBC 7.0
Hgb 9.5 L
Hct 27.8 L
Plt Count 168
Sodium 142
Potassium 4.0
Chloride 102
Carbon Dioxide 27
BUN 31 H
Creatinine 0.6
Glucose 93
Calcium 9.3
Vital Signs:
max temp for 24 hours
09/19/24
07:25
Temp 98.6 F
Vital Signs
Temp Pulse Resp BP Pulse Ox
97.8 F 68 18 115/67 95
09/20/24 11:35 09/20/24 11:35 09/20/24 11:35 09/20/24 11:35 09/20/24 13:24
I&O
09/19/24 09/20/24 09/21/24
06:59 06:59 05:59
Intake Total 0 / 0 360 / 360
Output Total 700 / 700
Balance 0 / 0 -340 / -340
Review of Systems
-
All other systems: Reviewed and negative
Physical Exam
-
General: No Apparent Distress
HEENT: Normocephalic, Atraumatic and Oxygen
Respiratory: Clear to Auscultation; Negative Wheezes or Rhonchi
Cardiac: Regular Rhythm and S1/S2; Negative Murmur
GI: Soft, Nontender, Nondistended and Normal Bowel Sounds
Musculoskeletal: No Clubbing, No Cyanosis and No Edema
Neuro: Awake
--- NOTE | 2024-09-20 15:04 | CM ---
CM following re: discharge planning.
Reviewed pt's chart, met with pt, spoke to pt's daughter Ellen and son Richard [phone].
According to MD pt is medically stable to be discharged today.
Pt is aware, expressed her agreement, IMM reviewed, placed on chart, pt has a copy.
pt is aware that SNF level of care recommended and pt politely declined it and she is requested to return back jimmy with [facility] care.
Pt's daughter stated she works as RN in a hospital and she will not be able to pick the pt up and she advised to talk to pt's son Richard.
CM spoke to pt's son Richard who stated he lives in [place] and he is aware that his mother strongly refused to go to rehab and supported pt's decision. pt's son stated that his nephew, pt's grandson Darnell will transport his mother home today.
per CM note a referral to [facility] made.
Please fax discharge instructions to [facility] at [phone]
D/C plan: home with [facility] and family support. Pt's grandson Darnell to transport.
[2024-09-20 15:25] VITALS: BP 168/83
--- NOTE | 2024-09-20 15:34 | CHAP ---
Called by nursing, at 11am I visited Renetta, who was feeling sad, alone, and scared. I offered a listening ear and a comforting presence, held her hand. Prayed with Renetta, which she appreciated. Also offered to bring a prayer blanket, but she
declined. Assured her at the time that [facility] would be available to bring Holy Communion on Sunday.
--- NOTE | 2024-09-22 18:37 | W.DCSUMMARY ---
Addendum entered and electronically signed by Marce Dueñas MD 09/22/24 19:34:
Read, reviewed, and agree. See same day progress note for additional details. Time spent coordinating care, DC planning, review of DC plan of care with resident, transition of care, review of records in EMR, med rec, consults, notes, d/w
consultants, nursing, family, and CM < 30 minutes
Original Note:
Discharge Summary
Discharge Data
Date of Admission: 09/18/24
Date of Discharge: 09/20/24
-
Pending Results: No
Hospital Course
Discharging Physician : Dr. Dueñas
Disposition : Home with VN, PT, OT
Primary care physician : Mercedes Duran
Principal Discharge diagnosis : Acute diastolic congestive heart failure exacerbation
Chronic Discharge diagnosis : paroxysmal atrial fibrillation, sick sinus syndrome status post pacemaker in past, myasthenia gravis, hypothyroidism, chronic generalized weakness, neck pain, chronic right shoulder pain with neuropathy, hypothyroidism
Hospital Course : Presented to ED 09/17/24 for shortness of breath and abdominal pain. She was found to be in acute exacerbation of chronic heart failure. She was treated with lasix and symptoms improved. Echo this hospitalization was overall
stable compared to prior imaging in Dec 2023. For her chronic generalized weakness, physical therapy recommended SNF or home at discharge; patient and family opted for home with VN and PT/OT. On day of discharge she was stable.
Important imaging findings :
Abdomen/pelvis CT 09/17/24
Findings:
Visualized portion of the lung bases demonstrate bibasilar atelectasis/scarring.
Simple lower pole right renal cyst for which no follow-up imaging is recommended. Diffuse pancreatic atrophy. The liver, spleen, left kidney, adrenal glands are within normal limits. Gallbladder absent.
No abdominal aortic aneurysm.
Small amount of free fluid in the pelvis, nonspecific. No enlarged lymph nodes or free air. Mild diverticulosis coli without evidence for diverticulitis. The bowel is without evidence of obstruction or adjacent inflammatory changes. Normal appendix.
Bladder unremarkable.
Grossly no suspicious osseous lesions are identified. Chronic left pubic rami deformity. Chronic compression deformities redemonstrated.
IMPRESSION:
1. No significant acute abnormality identified in the abdomen or pelvis, as described above.
Chest xray 09/17/24
FINDINGS:
Stable left chest wall cardiac device with intact leads.
Lungs: Mild diffuse interstitial prominence. No convincing focal infiltrates. No significant pleural effusions. No visualized pneumothorax.
Heart: Stable enlargement of the cardiomediastinal silhouette. Mild pulmonary vascular congestion.
Osseous structures: No acute abnormalities.
IMPRESSION:
Mild CHF.
Procedure findings :
Echo 09/18/24
CONCLUSIONS
Normal LV size and systolic function. LVEF 67%. No regional wall motion
abnormalities.
Stage II diastolic dysfunction with increased filling pressures.
Mildly dilated RV with normal systolic function.
Biatrial enlargement.
Moderate mitral regurgitation.
Well-seated bioprosthetic aortic valve with normal gradients (9/5 mmHg).
Moderate to severe tricuspid regurgitation. PASP 28 mmHg but may be
underestimated in the setting of severe TR.
Compared to prior echocardiogram on 12/25/2023, there is no significant change.
Discharge Plan
-
Patient Disposition: Home with Home Care
Discharge Diagnosis/Procedures: Acute diastolic congestive heart failure exacerbation, paroxysmal atrial fibrillation, sick sinus syndrome status post pacemaker in past, myasthenia gravis, hypothyroidism, chronic generalized weakness, neck pain,
chronic right shoulder pain with neuropathy, hypothyroidism
Condition: Good
Diet: Other diet
Additional Diets: Low-fat with 2 g sodium and 48 ounce fluid restriction daily
Activity: As tolerated
Driving Restrictions: No driving
Bathing Restrictions: None
Other Services: VN, PT and OT
Specialty Instructions: Weigh Daily- Call MD for wt gain/loss 3 lbs overnight/5 lbs in 1 week
Instructions: *CBC Heart Failure Instructions
Referrals:
Sabine Piña NP [Specified Professional Personl] - 10/09/24 11:40 am
Mercedes Duran CRNP [Family Provider] - in less than 1 week
Prescriptions:
New
furosemide 20 mg Tablet
20 mg PO DAILY Qty: 30 0RF
docusate sodium 100 mg Capsule
100 mg PO DAILY Qty: 0 0RF
Continued
atorvastatin 20 mg Tablet
20 mg PO DAILY
mycophenolate mofetil [CellCept] 500 mg Tablet
500 mg PO DAILY
alprazolam [Xanax] 0.25 mg Tablet
0.25 mg PO BID
sertraline [Zoloft] 50 mg Tablet
50 mg PO DAILY
pregabalin [Lyrica] 150 mg Capsule
150 mg PO BID
Prolia 60 mg/mL Syringe
60 mg SC [id number]
Eliquis 5 mg Tablet
5 mg PO BID
prednisolone acetate 1 % drops,suspension
1 drp LEFT EYE DAILYPRN PRN (Reason: glaucoma discomfort relief)
pantoprazole [Protonix] 40 mg tablet,delayed release (DR/EC)
40 mg PO BID
metoprolol succinate 50 mg tablet extended release 24 hr
50 mg PO DAILY
levothyroxine 100 mcg tablet
100 mcg PO DAILY AT 0700
aspirin 81 mg Tablet,Delayed Release (Dr/Ec)
81 mg PO DAILY
fentanyl 25 mcg/hr Patch 72 Hour
1 patch TRANSDERMAL Q72H
Discharge Orders:
Discharge Patient (As Directed); Ordered 09/20/24
Ordered By: Marce Dueñas
Discharge Date and Time
Discharge Date/Time: 09/20/24 17:18
Print Language: GEORGIAN
== END 2024-09-20 17:18 | disposition home health service (06) | DRG 291 ==
LOC: 4 EAST ACU 01:38
PROVIDERS: Clinical Nurse Specialist Family Health; Emergency Medicine; Student in an Organized Health Care Education/Training Program; ADMITTING PHYSICIAN Internal Medicine; ATTENDING PHYSICIAN Internal Medicine; EMERGENCY PHYSICIAN Emergency Medicine; FAMILY PHYSICIAN Nurse Practitioner Primary Care; OTHER PHYSICIAN Student in an Organized Health Care Education/Training Program
DX: I11.0 Hypertensive heart disease with heart failure (principal); I50.33 Acute on chronic diastolic (congestive) heart failure; B02.29 Other postherpetic nervous system involvement; D84.821 Immunodeficiency due to drugs; Z95.3 Presence of xenogenic heart valve; E03.9 Hypothyroidism, unspecified; F32.A Depression, unspecified; I08.3 Combined rheumatic disorders of mitral, aortic and tricuspid valves; I69.398 Other sequelae of cerebral infarction; H54.3 Unqualified visual loss, both eyes; Z66 Do not resuscitate; E86.0 Dehydration; Z95.1 Presence of aortocoronary bypass graft; Z79.01 Long term (current) use of anticoagulants; I49.3 Ventricular premature depolarization; I48.0 Paroxysmal atrial fibrillation; E78.00 Pure hypercholesterolemia, unspecified; F41.1 Generalized anxiety disorder; G70.00 Myasthenia gravis without (acute) exacerbation; G89.29 Other chronic pain; H40.9 Unspecified glaucoma; I25.10 Atherosclerotic heart disease of native coronary artery without angina pectoris; I49.5 Sick sinus syndrome; Z79.82 Long term (current) use of aspirin; Z79.624 Long term (current) use of inhibitors of nucleotide synthesis; Z79.890 Hormone replacement therapy; Z79.899 Other long term (current) drug therapy; Z95.0 Presence of cardiac pacemaker
CPT/HCPCS: 71046; 74177; 80048; 80053; 81003; 82728; 83540; 83550; 83605; 83690; 83735; 83880; 84100; 84443; 84484; 85025; 85027; 87811; 93005; 93306; 96361; 96374; 96375; 97116; 99285; Q9967

== ENCOUNTER 2024-09-24 17:20 | Observation (INO) | payer MEDICARE, OTHER, SELFPAY ==
[2024-09-24 14:59] LABS: % Basophils 0.8 % (0-2); % Eosinophils 1.1 % (0-6); % Immature Granulocytes 0.5 % (0-0.5); % Lymphocytes 29.3 % (20.5-51.1); % Monocytes 9.4 % (1.7-9.3); % Neutrophils 58.9 % (42.2-75.2); Absolute Basophils 0.1 10^3/uL (0-0.2); Absolute Eosinophils 0.1 10^3/uL (0-0.7); Absolute Lymphocytes 2.1 10^3/uL (1.2-3.4); Absolute Monocytes 0.7 10^3/uL (0.1-0.6); Absolute Neutrophils 4.3 10^3/uL (1.4-6.5); Hematocrit 32.9 % (37.0-47.0); Hemoglobin 11.2 g/dL (12.0-16.0); Mean Corpuscular Hgb 31.2 pg (27.0-31.0); Mean Corpuscular Volume 91.6 fL (81.0-99.0); Mean Platelet Volume 10.8 fL (7.4-10.4); Nucleated Red Blood Cells % 0 %; Platelet Count 218 10^3/uL (130-400); Red Blood Cell Count 3.59 10^6/uL (4.20-5.40); Red Cell Dist. Width 15.8 % (11.5-14.5); White Blood Cell Count 7.3 10^3/uL (4.8-10.8)
[2024-09-24 15:11] LABS: ALT (SGPT) 20 U/L (0-35); AST (SGOT) 28 U/L (14-36); Albumin 4.7 g/dl (3.5-5.0); Alkaline Phosphatase 61 U/L (38-126); Blood Urea Nitrogen 19 mg/dl (7-17); Calcium 9.2 mg/dl (8.4-10.2); Carbon Dioxide 33 mmol/L (22-30); Chloride 98 mmol/L (98-107); Glucose 106 mg/dl (70-99); Potassium 3.7 mmol/L (3.5-5.1); Sodium 144 mmol/L (135-145); Total Bilirubin 1.3 mg/dl (0.2-1.3); Total Protein 7.2 g/dl (6.3-8.2); eGFR > 60.00
--- NOTE | 2024-09-24 15:38 | ED.GENMED ---
History of Present Illness
General
Chief Complaint: Failure to Thrive
Time Seen by Provider: 09/24/24 14:39
History of Present Illness
History of Present Illness:
88-year-old female with history of myasthenia gravis, atrial fibrillation, CHF, and CAD presents to the emergency department via EMS for evaluation of failure to thrive. She was discharged from the hospital 2 days ago, her daughter states that upon
returning home she had intractable vomiting for the course of the night. Since that time she has had very little to eat or drink and has not been able to get herself up and care for herself while the daughter is at work. Patient states to me that
she feels weak but denies any chest pain or shortness of breath at this time.
Past History
Past History
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
(Myasthenia Gravis, Polymyositis, COVID-19, osteoporosis, glaucoma, bilateral nonarteritic ischemic optic neuropathies, oral thrush, Back and neck pain, Headache, ) and Other (Postconcussive syndrome, thymoma?, Postherpetic neuralgia, Hiatal
hernia, UTI, Glaucoma, )
ED Past Surgical History: Cardiac (Aortic valve replacement, CABG, loop recorder implant, Pacer), Cholecystectomy, Orthopedic (Kyphoplasty) and Other (Carpal tunnel release, right eye cataract extraction 2021)
Social History
Tobacco: Non-smoker
Alcohol: None
Drug: None
Personal:
Living: with family
Family History
Family History: Other (Reviewed and noncontributory)
Review of Systems
Review of Systems
Allergies reviewed?: Yes
All Other Systems: ROS reviewed and negative except as documented in HPI and ROS
Phy Exam
Physical Exam
Physical Exam:
GEN: Well appearing, NAD, WDWN
HEENT: Oral mucosa moist, no scleral icterus
Cardiac: Regular rate, no murmur
Lung: No respiratory distress, no tachypnea, lungs CTAB
MSK: No gross deformity or injuries
Skin: Good color, no pallor or jaundice, no rashes
Neuro: AO x3, moves all extremities freely
Psych: Calm, cooperative
Course
Orders/Labs/Results
Orders:
Orders
09/24/24 14:36
Electrocardiogram (*1) Urgent
Reason for Study: Other
Other Reason for Exam: failure to thrive
09/24/24 14:37
EKG- Treatment ONCE
09/24/24 14:44
CMP [Comprehensive Metabolic Panel] Urgent
Complete Blood Count/With Diff Urgent
09/24/24 15:24
Case Management Consult ONCE
Case Management Consult: Group Home Placement
Pt Eval And Treat Urgent
Activity Level: Ambulate
09/24/24 16:13
Urinalysis Reflex To Culture Urgent
09/24/24 16:31
Obstruct Series W/PA Chest [CR Obstruct Series W/pa Chest] Urgent
Comment:
Reason For Exam: vomiting, constipation
09/24/24 16:58
Admit/Transfer Patient As Directed
Co-Sign Provider:
Level of Care: Observation services
Assign to:: Medical/Surgical
Physician / Group: Kenny
Diagnosis: Weakness, Constipation
09/24/24 16:59
PRN Pain Medication Management As Directed
May give lesser potent ordered pain med per pt: Yes
preference::
Protocol:: Medication orders for pain may be administered in a
manner that supports deferring to patient preference
when the pt is:
- Requesting an ordered lesser potent pain medication.
Least to most potent pain medications are defined
as: acetaminophen < NSAID < tramadol < opioids
(morphine, oxycodone, hydromorphone).
- Requesting a lesser dose of the same medication IF
ORDERED.
- Requesting a less intrusive route of administration
if both routes are prescribed by the provider (PO <
IV).
09/24/24 17:01
Code Status As Directed
Resuscitation Status: Do not resuscitate
Reached after discussion with pt or family/Healthcare POA: Yes
DNR Bracelet Application ONCE
Abnormal Lab Results
09/24/24
14:44
RBC 3.59 L 10^6/uL
(4.20-5.40)
Hgb 11.2 L g/dL
(12.0-16.0)
Hct 32.9 L %
(37.0-47.0)
MCH 31.2 H pg
(27.0-31.0)
RDW 15.8 H %
(11.5-14.5)
MPV 10.8 H fL
(7.4-10.4)
Absolute Monos (auto) 0.7 H 10^3/uL
(0.1-0.6)
Monocytes % 9.4 H %
(1.7-9.3)
Carbon Dioxide 33 H mmol/L
(22-30)
BUN 19 H mg/dl
(7-17)
Glucose 106 H mg/dl
(70-99)
09/24/24 14:44
09/24/24 14:44
Vital Signs
Initial and Last Documented VS:
Initial Vital Signs
Temp Pulse Resp Pulse Ox
97.8 F 67 16 94
09/24/24 14:34 09/24/24 14:34 09/24/24 14:34 09/24/24 14:34
Last Documented Vital Signs
Temp Pulse Resp BP Pulse Ox
97.8 F 76 15 114/44 95
09/24/24 14:34 09/24/24 16:30 09/24/24 16:30 09/24/24 16:02 09/24/24 16:30
MDM/Problems Addressed
MDM/Problems Addressed:
Pt unfortunately failed discharge home and will likely require rehab. Unclear why she was vomiting at discharge. Does not appear to be in CHF at this time. Will admit for further placement considerations
*Critical Care Note
Total Time (30-74mins, 75-104mins- exclusive of procedures): Not Applicable
Update Note
Update Note:
Intrauterine device interrogation shows the patient remains in A. tach/A-fib rhythm, similar to previous device interrogations. Atrial undersensing reported by [employer] rep
ED Attending Note
-
Portions of this chart may have been created with voice recognition software.� Occasional wrong word or��sound alike� substitutions may have occurred due to the inherent limitations of voice recognition software.
Discharge Plan
Departure
Patient Disposition: Admit
Date of Disposition: 09/24/24
Time of Disposition: 16:19
Admit to: Med/Surg
Presentation/result/management discussed w/ accepting MD/DO: Hospitalist
Discharge Problem:
Adult failure to thrive
Interventions
Interventions:
*Risk Screen - Suicide Last Done: 09/24/24 14:34
*General Assessment Last Done: 09/24/24 14:34
*Neglect/Abuse Screening Last Done: 09/24/24 14:34
ED- Fall Risk Assessment Last Done: 09/24/24 14:34
*ED COVID-19 Vaccine History Last Done: 09/24/24 14:34
[2024-09-24 15:45] VITALS: BP 105/82
--- NOTE | 2024-09-24 15:45 | CM ---
Addendum entered by Kelsey Dixon RN 09/24/24 16:28:
CM attempted to speak with patient's daughter at bedside. Daughter stated that she would prefer all communication to go through son Richard [phone]. Daughter did state that patient had a 'terrible' experience at [facility].
CM spoke with son Richard and discussed placement options and challenges with funding SNF including lack of qualifying stay. Patient's son felt the conversation was premature to discuss placement. Patient son stated that he does feel that patient
needs rehab, but she would not be agreeable to self pay options. Son was requesting clinical update from ED PA.
Original Note:
CM reviewed medical records. Patient was recently discharged from [facility]. On review of PT notes, it was recommended that patient transition to SNF. Patient refused, but was agreeable to [facility]. CM noted referral was made on
discharge.
Patient is Medicare and does not currently have a three day qualifying stay for placement. CM is further pending PT evaluation. CM will discuss placement options when family arrives.
[2024-09-24 16:01] VITALS: PULSE 61; O2SAT 94
[2024-09-24 16:02] VITALS: BP 114/44
--- NOTE | 2024-09-24 16:32 | HPS.HSE ---
Family Physician
-
Family Physician: Mercedes Duran
Chief Complaint
-
Weakness
History of Present Illness
Patient is an 88 y/o female past medical history of CAD, A-fib, Myasthenia Gravis and recent hospitalization for Acute Heart Failure discharge on September 20 who presents with weakness. Additional history is obtained from patient's daughter at the
bedside. On Sunday night (the night of her discharge) patient several episodes of vomiting. Since that time patient reports very poor oral intake only tolerating a few bites of bread at a time. Last reported bowel movement was 7-8 days ago.
Overall patient feels very weak with no energy. Daughter reports patient was also complaining of some dizziness earlier today. Patient denies abdominal pain, urinary symptoms, or fevers.
Medical History
Past Medical History
Past Medical History: Reports Other
Additional Past Medical History:
Coronary Artery Disease s/p CABG
Chronic HFpEF
Valvular Heart Disease: Moderate Mitral Regurgitation, Moderate/Severe Tricuspid Regurgitation, Aortic Stenosis s/p Bioprosthetic Aortic Valve Replacement
Paroxysmal Atrial Fibrillation
Sick Sinus Syndrome s/p Pacemaker
Myasthenia Gravis
Hypothyroidism
Chronic Pain with Opioid Dependence
Polymyositis
Anxiety / Depression
Past Surgical History: Reports Other
Additional Past Surgical History:
CABG
Bioprosthetic Aortic Valve Replacement
Thymectomy
Cholecystectomy
Carpal Tunnel
Left Wrist Surgery
Spine Fusion
Kyphoplasty
Social History
Tobacco: Non-smoker
Alcohol: None
Personal: Single
Living: With Family
Employment: Retired
Family History
Family History: Not pertinent
Allergies / Home Medications
Allergies reflects when Allergies were last updated in [facility].
Home Medications with original date entered in [facility]
Allergy/Medication List:
Allergies
Allergy/AdvReac Type Severity Reaction Status Date / Time
ranitidine [From Zabrittac] Allergy Anaphylaxis Verified 09/17/24 18:19
codeine AdvReac Nausea Verified 09/17/24 18:19
Home Medications
alprazolam 0.25 mg tablet (Xanax) 0.25 mg PO BID anxiety 07/29/22
atorvastatin 20 mg tablet 20 mg PO DAILY High cholesterol 07/29/22
denosumab 60 mg/mL subcutaneous syringe (Prolia) 60 mg SC [id number] Bone health 07/29/22
mycophenolate mofetil 500 mg tablet (CellCept) 500 mg PO DAILY Myasthenia gravis 07/29/22
pregabalin 150 mg capsule (Lyrica) 150 mg PO BID Neurological Condition 07/29/22
sertraline 50 mg tablet (Zoloft) 50 mg PO DAILY depression/anxiety 07/29/22
apixaban 5 mg tablet (Eliquis) 5 mg PO BID Blood clot prevention/tx 10/07/22
levothyroxine 100 mcg tablet 100 mcg PO DAILY AT 0700 Thyroid 10/09/22
metoprolol succinate 50 mg tablet,extended release 24 hr 50 mg PO DAILY Blood pressure 10/09/22
pantoprazole 40 mg tablet,delayed release (Protonix) 40 mg PO BID Gastrointestinal issue 10/09/22
aspirin 81 mg tablet,delayed release 81 mg PO DAILY Blood Clot Prevention/Tx 09/18/24
fentanyl 25 mcg/hr transdermal patch 1 patch transdermal Q72H Pain 09/18/24
docusate sodium 100 mg capsule 100 mg PO DAILY Constipation #0 caps 09/20/24
furosemide 20 mg tablet 20 mg PO DAILY Heart Failure #30 tabs 09/20/24
Review of Systems
-
A 12 point ROS was completed and negative except as noted: Yes
Constitutional: Denies Fever or Chills
Respiratory: Denies Cough or Trouble Breathing
Cardiac: Denies Chest Pain or Palpitations
Abdomen/GI: Reports Vomiting, Constipated and Anorexia; Denies Abdominal Pain
Physical Exam
Vital Signs
Vital Signs
Temp Pulse Resp Pulse Ox
97.8 F 60 19 96
09/24/24 14:34 09/24/24 15:30 09/24/24 15:30 09/24/24 15:30
Physical Exam
General: Comfortable, Conversant and Appears Chronically Ill
HEENT: NormoCephalic, Anicteric and Atraumatic
Respiratory: Clear and Non Labored Respirations
Cardiac: S1/S2 and Regular Rhythm
GI: Soft, Non Distended, Tender (Mild discomfort to palpation throughout) and Other (Hypoactive bowel sounds)
Rectal: Deferred by Provider
Musculoskeletal: No Clubbing, No Cyanosis and No Edema
Skin: Warm and Dry
Neuro: Awake, Alert, Oriented and Nonfocal/grossly intact
Psych: Calm
Laboratory Results
-
09/24/24 14:44
09/24/24 14:44
Laboratory Results
Total Bilirubin 1.3 mg/dl (0.2-1.3) 09/24/24 14:44
AST 28 U/L (14-36) 09/24/24 14:44
ALT 20 U/L (0-35) 09/24/24 14:44
Alkaline Phosphatase 61 U/L (38-126) 09/24/24 14:44
Data Reviewed
-
Lab Data: Labs Reviewed by me
Old Records: Reviewed
Impression/Plan
-
Generalized Weakness, suspect multi-factorial related to deconditioning and poor oral intake
-Continue PT/OT
Constipation, possible Obstipation
-Patient reports last bowel movement was 7-8 days ago
-Check Obstruction Series
-Plan for milk/molasses enema and starting Senna-S if X-ray is negative for obstruction
-Full Liquids and advanced diet as tolerated
Coronary Artery Disease s/p CABG
-Continue aspirin
Chronic HFpEF, recent Acute Exacerbation
Valvular Heart Disease: Moderate Mitral Regurgitation, Moderate/Severe Tricuspid Regurgitation, Aortic Stenosis s/p Bioprosthetic Aortic Valve Replacement
-Continue Lasix
-Monitor Is&OS and Daily Weights
Paroxysmal Atrial Fibrillation / Sick Sinus Syndrome s/p Pacemaker
-Continue Eliquis for anticoagulation
-Continue metoprolol for rate control
Hyperlipidemia
-Continue atorvastatin
Myasthenia Gravis
-Continue mycophenolate
Hypothyroidism
-Continue levothyroxine
Chronic Pain with Opioid Dependence
-Continue Fentanyl Patch and Lyrica
Anxiety / Depression
-Continue Xanax and Zoloft
DVT proph: Eliquis
Code Status: DNR
--- NOTE | 2024-09-24 16:46 | W.PN.UPDATE ---
Update Note
Progress Note Update
This is an addendum to the H&P written by Yolie Juarez on 09/24/2024. Patient seen and examined independently with PA.
88-year-old female past medical history of CAD status post CABG, HFpEF, paroxysmal atrial fibrillation/sick sinus syndrome status post pacemaker, aortic valve replacement, PAD, hypertension, myasthenia gravis, polymyositis, hypothyroidism,
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
and generalized weakness.
Patient was admitted from 09/18 to 09/20 for acute diastolic CHF exacerbation and was newly started on Lasix.
Generalized weakness appears to be multifactorial secondary to decreased p.o. intake from constipation as well as addition of Lasix and deconditioning from hospitalization. Check abdominal x-ray. Start full liquid diet. Milk molasses enema and
start senna. PT/OT.
[2024-09-24 17:46] VITALS: BMI 37.8
[2024-09-24 17:52] VITALS: BP 134/61
[2024-09-24] MEDS: DURAGESIC 25 MCG/HR PATCH 1 PATCH TRANSDERM (18:21)
[2024-09-24] MEDS: XANAX 0.25 MG PO (20:40)
[2024-09-24] MEDS: ELIQUIS 5 MG PO (20:40)
[2024-09-24] MEDS: PROTONIX 40 MG PO (20:40)
[2024-09-24] MEDS: LYRICA 150 MG PO (20:40)
[2024-09-24] MEDS: SENOKOT-S 2 TABLET PO (20:40)
[2024-09-24 21:09] LABS: Glucose - Point of Care 113 mg/dl (70-99)
[2024-09-24 23:48] VITALS: BP 140/80
[2024-09-25] MEDS: SYNTHROID 100 MCG PO (05:22)
[2024-09-25 06:04] VITALS: BMI 37.6
[2024-09-25 06:10] LABS: Hematocrit 28.7 % (37.0-47.0); Mean Corp Hgb Conc. 34.8 g/dL (33.0-37.0); Mean Corpuscular Hgb 31.3 pg (27.0-31.0); Mean Platelet Volume 12.2 fL (7.4-10.4); Platelet Count 194 10^3/uL (130-400); Red Blood Cell Count 3.19 10^6/uL (4.20-5.40); Red Cell Dist. Width 15.5 % (11.5-14.5); White Blood Cell Count 6.1 10^3/uL (4.8-10.8)
[2024-09-25 06:27] LABS: Blood Urea Nitrogen 17 mg/dl (7-17); Calcium 8.8 mg/dl (8.4-10.2); Carbon Dioxide 29 mmol/L (22-30); Chloride 100 mmol/L (98-107); Estimated Creatinine Clearance 34 ml/min; Glucose 92 mg/dl (70-99); Potassium 3.4 mmol/L (3.5-5.1); Sodium 142 mmol/L (135-145); eGFR > 60.00
[2024-09-25 07:27] VITALS: BP 108/49
[2024-09-25] MEDS: TOPROL XL 50 MG PO (08:31)
[2024-09-25] MEDS: SENOKOT-S 2 TABLET PO ×2 (08:31→21:00)
[2024-09-25] MEDS: ASPIR LOW (ENTERIC COATED) 81 MG PO (08:31)
[2024-09-25] MEDS: CELLCEPT 500 MG PO (08:31)
[2024-09-25] MEDS: LYRICA 150 MG PO ×2 (08:31→21:00)
[2024-09-25] MEDS: LASIX 20 MG PO (08:31)
[2024-09-25] MEDS: XANAX 0.25 MG PO ×2 (08:31→21:00)
[2024-09-25] MEDS: PROTONIX 40 MG PO ×2 (08:31→21:00)
[2024-09-25] MEDS: ELIQUIS 5 MG PO ×2 (08:31→21:00)
[2024-09-25] MEDS: LIPITOR 20 MG PO (08:31)
[2024-09-25] MEDS: ZOLOFT 50 MG PO (08:32)
[2024-09-25 09:10] VITALS: BP 136/57; PULSE 63; O2SAT 99
--- NOTE | 2024-09-25 09:16 | W.PN.HOSP.TC ---
Addendum entered and electronically signed by Marce Dueñas MD 09/25/24 15:52:
I saw and evaluated the patient independently. I reviewed the resident�s note and agree with findings and plan as documented by Dr. Wilkerson.
GENERAL: elderly female with dementia in no apparent distress
HEENT: NC/AT
HEART: regular rate and rhythm, +S1, +S2
LUNGS: crackles at bases bilaterally
ABDOM: soft, nontender, nondistended, + bowel sounds
EXT: no cyanosis, clubbing, or edema
NEUROLOGIC: apparent dementia--otherwise grossly intact
Generalized weakness, acute on chronic--Likely multifactorial related to deconditioning and poor oral intake--At baseline prior to recent hospitalization, uses walker at home, lives independently at [facility]. PT recommended SNF but
patient opted for home with VN- PT/OT
Constipation- Obstruction series negative- S/p M/M enema, senna-S which produced BM--Advance diet to low cholesterol/low Na
Chronic HFpEF, not in acute exacerbation --weights down since last admission--Valvular heart disease: mod MR, mod-sev TR, s/p bioprosthetic aortic valve replacement- Recent echo stable compared to Dec 2023- Continue home lasix 20mg po daily-
Daily weights, I&Os, low Na diet, fluid restrict
Paroxysmal atrial fibrillation/Sick sinus syndrome s/p pacemaker-- NSR, rate is paced- Continue home eliquis and metoprolol
Hypokalemia- K today 3.4 --> will supplement today- Daily BMP
Chronic R shoulder pain, opioid dependence, neuropathy--continue home fentanyl patch, lyrica
Myasthenia gravis- continue home mycophenolate mofetil
Hypothyroidism- continue home synthroid 100mcg qd; recent tsh wnl
Hyperlipidemia- continue atorvastatin
CAD s/p CABG- continue ASA
Anxiety/depression- continue xanax, zoloft
Code status: DNR
DVT proph--Eliquis
cont PT/OT
Original Note:
Today's Communication/Plan
-
supplement K, PT/OT
Assessment / Plan
Assessment / Plan
88yo F with PMH aortic stenosis s/p valve replacement, CHF, myasthenia gravis, paroxysmal afib, sick sinus syndrome s/p pacemaker who presented to ED 09/24/24 for generalized weakness. She was recently hospitalized 09/17-09/20; presented to ED for SOB
and abd pain, found to have CHF exacerbation. At discharge from hospital, SNF rehab was recommended but she refused in favor of going home with VN. Since discharge, she has had vomiting, poor oral intake, and constipation.
Generalized weakness, acute on chronic
- Likely multifactorial related to deconditioning and poor oral intake
- At baseline prior to recent hospitalization, uses walker at home, lives independently at [facility]. PT recommended SNF but patient opted for home with VN.
- PT/OT
Constipation
- Obstruction series negative
- S/p M/M enema, senna-S which produced BM
- Advance diet to low cholesterol/low Na
Chronic HFpEF, not in acute exacerbation
Valvular heart disease: mod MR, mod-sev TR, s/p bioprosthetic aortic valve replacement
- Recent echo stable compared to Dec 2023
- Continue home lasix 20mg po daily
- Daily weights, I&Os, low Na diet, fluid restrict
Paroxysmal atrial fibrillation
Sick sinus syndrome s/p pacemaker
- NSR, rate is paced
- Continue home eliquis and metoprolol
Hypokalemia
- K today 3.4 --> will supplement today
- Daily BMP
Chronic R shoulder pain, opioid dependence, neuropathy- continue home fentanyl patch, lyrica
Myasthenia gravis- continue home mycophenolate mofetil
Hypothyroidism- continue home synthroid 100mcg qd; recent tsh wnl
Hyperlipidemia- continue atorvastatin
CAD s/p CABG- continue ASA
Anxiety/depression- continue xanax, zoloft
Code status: DNR
VTE ppx: eliquis
Diet: Low sodium, cholesterol lowering
Dispo planning: TBD
Anticipated Discharge: 24 - 48 hours
Subjective/Interval History
-
Date of Service: September 25, 2024
No acute events overnight. Reports generalized weakness even while resting in bed. Denies poor oral intake then later in conversation reports poor oral intake. Denies chest pain, shortness of breath, nausea, vomiting, diarrhea.
Objective Data
-
Labs:
Laboratory Results
09/25/24
05:20
WBC 6.1
Hgb 10.0 L
Hct 28.7 L
Plt Count 194
Sodium 142
Potassium 3.4 L
Chloride 100
Carbon Dioxide 29
BUN 17
Creatinine 0.7
Glucose 92
Calcium 8.8
Vital Signs:
Vital Signs
Temp Pulse Resp BP Pulse Ox
98 F 70 16 108/49 94
09/25/24 07:27 09/25/24 08:31 09/25/24 07:27 09/25/24 08:31 09/25/24 07:27
Review of Systems
-
All other systems: Reviewed and negative
Physical Exam
-
General: No Apparent Distress, Comfortable and Conversant
HEENT: Normocephalic and Atraumatic
Respiratory: Clear to Auscultation and Non Labored Respirations; Negative Wheezes
Cardiac: Regular Rhythm and S1/S2
GI: Soft, Nontender, Nondistended and Normal Bowel Sounds
Musculoskeletal: No Edema
Skin: Warm and Dry
Neuro: Awake and Alert
Psych: Calm
Data Reviewed
-
Diagnostic Radiology: Image personally visualized and interpreted and Report Reviewed by me
Labs: Labs Reviewed by me
[2024-09-25 09:20] VITALS: BP 136/57; PULSE 63; O2SAT 99
[2024-09-25] MEDS: KCL 270 MEQ IV (10:37)
--- NOTE | 2024-09-25 14:31 | CM ---
Patient seen at bedside. Patient is OBS status, CM left MALHOTRA form with patient and will call to patient poa. Patient may qualify for SNF due to recent 3 day qualifying inpatient stay at . CM will continue to follow for discharge planning needs.
[2024-09-25 15:19] VITALS: BP 103/47
[2024-09-25] MEDS: KCL 20 MEQ PO (16:33)
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
[2024-09-25 23:35] VITALS: BP 127/48
[2024-09-26 06:06] LABS: Hematocrit 31.2 % (37.0-47.0); Hemoglobin 10.2 g/dL (12.0-16.0); Mean Corp Hgb Conc. 32.7 g/dL (33.0-37.0); Mean Corpuscular Hgb 30.5 pg (27.0-31.0); Mean Corpuscular Volume 93.4 fL (81.0-99.0); Mean Platelet Volume 11.8 fL (7.4-10.4); Platelet Count 202 10^3/uL (130-400); Red Blood Cell Count 3.34 10^6/uL (4.20-5.40); Red Cell Dist. Width 15.7 % (11.5-14.5); White Blood Cell Count 6.4 10^3/uL (4.8-10.8)
[2024-09-26 06:29] VITALS: BMI 37.7
[2024-09-26 06:34] LABS: Blood Urea Nitrogen 16 mg/dl (7-17); Calcium 9.2 mg/dl (8.4-10.2); Carbon Dioxide 29 mmol/L (22-30); Chloride 102 mmol/L (98-107); Estimated Creatinine Clearance 34 ml/min; Glucose 95 mg/dl (70-99); Magnesium 2.2 mg/dl (1.6-2.3); Sodium 141 mmol/L (135-145); eGFR > 60.00
[2024-09-26] MEDS: SYNTHROID 100 MCG PO (06:35)
[2024-09-26 07:35] LABS: Folate > 20.0 ng/ml (2.76-20); Vitamin B12 > 1000 pg/ml (239-931)
--- NOTE | 2024-09-26 07:38 | W.PN.HOSP.TC ---
Addendum entered and electronically signed by Marce Dueñas MD 09/26/24 13:33:
I saw and evaluated the patient independently. I reviewed the resident�s note and agree with findings and plan as documented by Dr. Wilkerson.
GENERAL: elderly female with dementia in no apparent distress
HEENT: NC/AT
HEART: regular rate and rhythm, +S1, +S2
LUNGS: crackles at bases bilaterally
ABDOM: soft, nontender, nondistended, + bowel sounds
EXT: no cyanosis, clubbing, or edema
NEUROLOGIC: apparent dementia--otherwise grossly intact
Generalized weakness, acute on chronic--Likely multifactorial related to deconditioning and poor oral intake--At baseline prior to recent hospitalization, uses walker at home, lives independently at longterm community. PT recommended SNF but
patient opted for home with VN- PT/OT
Constipation- Obstruction series negative- S/p M/M enema, senna-S which produced BM--Advance diet to low cholesterol/low Na
Chronic HFpEF, not in acute exacerbation --weights down since last admission--Valvular heart disease: mod MR, mod-sev TR, s/p bioprosthetic aortic valve replacement- Recent echo stable compared to Dec 2023- Continue home lasix 20mg po daily-
Daily weights, I&Os, low Na diet, fluid restrict
Paroxysmal atrial fibrillation/Sick sinus syndrome s/p pacemaker-- NSR, rate is paced- Continue home eliquis and metoprolol
Hypokalemia- K today 3.4 --> will supplement today- Daily BMP
Chronic R shoulder pain, opioid dependence, neuropathy--continue home fentanyl patch, lyrica
Myasthenia gravis- continue home mycophenolate mofetil
Hypothyroidism- continue home synthroid 100mcg qd; recent tsh wnl
Hyperlipidemia- continue atorvastatin
CAD s/p CABG- continue ASA
Anxiety/depression- continue xanax, zoloft
Code status: DNR
DVT proph--Eliquis
cont PT/OT
pt appears medically stable for d/c but apparently cannot afford any private pay for anything....as per daughter--will attempt to call
Original Note:
Today's Communication/Plan
-
continue PT/OT, discharge planning ongoing
Assessment / Plan
Assessment / Plan
88yo F with PMH aortic stenosis s/p valve replacement, CHF, myasthenia gravis, paroxysmal afib, sick sinus syndrome s/p pacemaker who presented to ED 09/24/24 for generalized weakness. She was recently hospitalized 09/17-09/20; presented to ED for SOB
and abd pain, found to have CHF exacerbation. At discharge from hospital, SNF rehab was recommended but she refused in favor of going home with VN. Since discharge, she has had vomiting, poor oral intake, and constipation.
Generalized weakness, acute on chronic
- Likely multifactorial related to deconditioning and poor oral intake
- At baseline prior to recent hospitalization, uses walker at home, lives independently at longterm community. Last hospitalization- PT recommended SNF but patient opted for home with VN.
- Continue PT/OT- rec SNF at discharge- CM following
Constipation
- Obstruction series negative
- S/p M/M enema, senna-S which produced BM
- Continue standing senna/docusate BID
Chronic HFpEF, not in acute exacerbation
Valvular heart disease: mod MR, mod-sev TR, s/p bioprosthetic aortic valve replacement
- Recent echo stable compared to Dec 2023
- Continue home lasix 20mg po daily
- Daily weights, I&Os, low Na diet, fluid restrict
Paroxysmal atrial fibrillation
Sick sinus syndrome s/p pacemaker
- NSR, rate is paced
- Continue home eliquis and metoprolol
Hypokalemia
- K 4.0 today after supplementation
- Continue to monitor daily BMP while hospitalized
Chronic anemia
- Hgb 11.2 on admission, appears at baseline --> 10.2 today
- No signs of acute blood loss or ongoing bleeding/bruising
- Recent Fe studies from prior hospitalization showed no iron deficiency
- Folate, B12 pending
Chronic R shoulder pain, opioid dependence, neuropathy- continue home fentanyl patch, lyrica
Myasthenia gravis- continue home mycophenolate mofetil
Hypothyroidism- continue home synthroid 100mcg qd; recent tsh wnl
Hyperlipidemia- continue atorvastatin
CAD s/p CABG- continue ASA
Anxiety/depression- continue xanax, zoloft
Code status: DNR
VTE ppx: eliquis
Diet: Low sodium, cholesterol lowering
Dispo planning: TBD, PT/OT rec SNF
Anticipated Discharge: Within 24 hours
Subjective/Interval History
-
Date of Service: September 26, 2024
No acute events overnight. Only complaints this morning is awaiting breakfast and new beverage. Reports mild headache. She denies lightheadedness, dizziness, chest pain, shortness of breath, nausea, vomiting, diarrhea, constipation. Last BM was last
night, no black or bloody stools. Tolerating PO diet. She says she has not been OOB.
Objective Data
-
Labs:
Laboratory Results
09/26/24
05:35
WBC 6.4
Hgb 10.2 L
Hct 31.2 L
Plt Count 202
Sodium 141
Potassium 4.0
Chloride 102
Carbon Dioxide 29
BUN 16
Creatinine 0.7
Glucose 95
Calcium 9.2
Vital Signs:
Vital Signs
Temp Pulse Resp BP Pulse Ox
97.1 F 67 14 127/48 95
09/25/24 23:35 09/25/24 23:35 09/25/24 23:35 09/25/24 23:35 09/26/24 03:25
Review of Systems
-
History Source: Patient
All other systems: Reviewed and negative
Physical Exam
-
General: No Apparent Distress, Comfortable and Conversant
HEENT: Normocephalic and Atraumatic
Respiratory: Clear to Auscultation and Non Labored Respirations; Negative Wheezes
Cardiac: Regular Rhythm and S1/S2
GI: Soft, Nontender, Nondistended and Normal Bowel Sounds
Musculoskeletal: No Edema
Skin: Warm and Dry
Neuro: Awake and Alert
Psych: Calm
Data Reviewed
-
Diagnostic Radiology: Image personally visualized and interpreted and Report Reviewed by me
Labs: Labs Reviewed by me
[2024-09-26 07:43] VITALS: BP 107/50
[2024-09-26] MEDS: LYRICA 150 MG PO ×2 (08:30→20:16)
[2024-09-26] MEDS: ELIQUIS 5 MG PO ×2 (08:30→20:17)
[2024-09-26] MEDS: PROTONIX 40 MG PO ×2 (08:31→20:30)
[2024-09-26] MEDS: XANAX 0.25 MG PO ×2 (08:31→20:17)
[2024-09-26] MEDS: LIPITOR 20 MG PO (08:31)
[2024-09-26] MEDS: ASPIR LOW (ENTERIC COATED) 81 MG PO (08:31)
[2024-09-26] MEDS: TOPROL XL 50 MG PO (08:31)
[2024-09-26] MEDS: LASIX 20 MG PO (08:31)
[2024-09-26] MEDS: ZOLOFT 50 MG PO (08:31)
[2024-09-26] MEDS: SENOKOT-S 2 TABLET PO ×2 (08:31→20:17)
[2024-09-26] MEDS: CELLCEPT 500 MG PO (08:31)
[2024-09-26 12:39] VITALS: BMI 37.7
[2024-09-26 14:35] VITALS: BP 125/72; PULSE 66
[2024-09-26 15:16] VITALS: BP 125/72
--- NOTE | 2024-09-26 16:03 | CM ---
Addendum entered by Marika Dennis 09/26/24 17:04:
Patient agreed to have CM send referrals to SNF options. Sent to [facility], [facility] and [facility] following discussion with daughter. Patient daughter is working on sunday please call son Richard [phone] to review any
openings for SNF placement. Patient son will contact facilities to determine if they can arrange to pay privately. Family has not signed OBS/MALHOTRA form. CM will continue to follow for discharge planning needs.
Original Note:
Patient seen earlier with physicians. Patient daughter present. Patient son on phone with CM, reviewed MALHOTRA form and patient son very upset about OBS status. Physician called again and reviewed with patient son information about the reasons for
patient status. Patient daughter requested CM explain to patient options and stated that they would take patient home today if she continues to refuse Rehab placement. Daughter aware that plan would be for private pay but she does not want mother to
be aware. CM and physician to meet with patient. Prior to admission patient lives alone a 1 story home with ramp to enter. Per Patient she uses a rollator and is independent with adls. Her daughter assists with showering. Patient known to [facility]. Physical therapy and Occupational therapy recommended skilled rehab, daughter and son aware. PCP: Nurse PractitionerEri Duran
and patient uses the Pharmacy: [facility]. CM will continue to follow for discharge planning needs.
Plan; home with VN vs SNF
[2024-09-26 23:00] VITALS: BP 133/63
[2024-09-27] MEDS: SYNTHROID 100 MCG PO (05:46)
[2024-09-27 06:00] VITALS: BMI 37.3
[2024-09-27 06:37] LABS: Hematocrit 31.9 % (37.0-47.0); Hemoglobin 10.3 g/dL (12.0-16.0); Mean Corp Hgb Conc. 32.3 g/dL (33.0-37.0); Mean Corpuscular Hgb 30.3 pg (27.0-31.0); Mean Corpuscular Volume 93.8 fL (81.0-99.0); Mean Platelet Volume 11.9 fL (7.4-10.4); Platelet Count 212 10^3/uL (130-400); Red Cell Dist. Width 15.7 % (11.5-14.5); White Blood Cell Count 6.8 10^3/uL (4.8-10.8)
[2024-09-27 06:43] LABS: Blood Urea Nitrogen 22 mg/dl (7-17); Calcium 9.7 mg/dl (8.4-10.2); Carbon Dioxide 29 mmol/L (22-30); Chloride 101 mmol/L (98-107); Estimated Creatinine Clearance 34 ml/min; Glucose 101 mg/dl (70-99); Magnesium 2.1 mg/dl (1.6-2.3); Potassium 4.1 mmol/L (3.5-5.1); Sodium 141 mmol/L (135-145); eGFR > 60.00
[2024-09-27 07:00] VITALS: BP 130/50
[2024-09-27] MEDS: LYRICA 150 MG PO ×2 (07:41→19:50)
[2024-09-27] MEDS: LASIX 20 MG PO (07:46)
[2024-09-27] MEDS: ASPIR LOW (ENTERIC COATED) 81 MG PO (07:47)
[2024-09-27] MEDS: ELIQUIS 5 MG PO ×2 (07:47→19:50)
[2024-09-27] MEDS: SENOKOT-S 2 TABLET PO (07:47)
[2024-09-27] MEDS: LIPITOR 20 MG PO (07:47)
[2024-09-27] MEDS: PROTONIX 40 MG PO ×2 (07:47→19:50)
[2024-09-27] MEDS: TOPROL XL 50 MG PO (07:47)
[2024-09-27] MEDS: CELLCEPT 500 MG PO (07:48)
[2024-09-27] MEDS: ZOLOFT 50 MG PO (07:48)
[2024-09-27] MEDS: XANAX 0.25 MG PO ×2 (07:48→19:51)
--- NOTE | 2024-09-27 08:57 | W.PN.HOSP.TC ---
Addendum entered and electronically signed by Marce Dueñas MD 09/27/24 13:19:
I saw and evaluated the patient independently. I reviewed the resident�s note and agree with findings and plan as documented by Dr. Wilkerson.
GENERAL: elderly female with dementia in no apparent distress
HEENT: NC/AT
HEART: regular rate and rhythm, +S1, +S2
LUNGS: crackles at bases bilaterally
ABDOM: soft, nontender, nondistended, + bowel sounds
EXT: no cyanosis, clubbing, or edema
NEUROLOGIC: apparent dementia--otherwise grossly intact
Generalized weakness, acute on chronic--Likely multifactorial related to deconditioning and poor oral intake--At baseline prior to recent hospitalization, uses walker at home, lives independently at [facility]-way community. PT recommended SNF but
patient opted for home with VN- PT/OT rec SNF--await input from re: accepting places
Constipation- Obstruction series negative- S/p M/M enema, senna-S which produced BM--Advance diet to low cholesterol/low Na
Chronic HFpEF, not in acute exacerbation --weights down since last admission--Valvular heart disease: mod MR, mod-sev TR, s/p bioprosthetic aortic valve replacement- Recent echo stable compared to Dec 2023- Continue home lasix 20mg po daily-
Daily weights, I&Os, low Na diet, fluid restrict
Paroxysmal atrial fibrillation/Sick sinus syndrome s/p pacemaker-- NSR, rate is paced- Continue home eliquis and metoprolol
Hypokalemia- K today 3.4 --> will supplement today- Daily BMP
Chronic R shoulder pain, opioid dependence, neuropathy--continue home fentanyl patch, lyrica
Myasthenia gravis- continue home mycophenolate mofetil
Hypothyroidism- continue home synthroid 100mcg qd; recent tsh wnl
Hyperlipidemia- continue atorvastatin
CAD s/p CABG- continue ASA
Anxiety/depression- continue xanax, zoloft
Code status: DNR
DVT proph--Eliquis
Original Note:
Today's Communication/Plan
-
dishcharge planning ongoing
Assessment / Plan
Assessment / Plan
88yo F with PMH aortic stenosis s/p valve replacement, CHF, myasthenia gravis, paroxysmal afib, sick sinus syndrome s/p pacemaker who presented to ED 09/24/24 for generalized weakness. She was recently hospitalized 09/17-09/20; presented to ED for SOB
and abd pain, found to have CHF exacerbation. At discharge from hospital, SNF rehab was recommended but she refused in favor of going home with VN. Since discharge, she has had vomiting, poor oral intake, and constipation.
Generalized weakness, acute on chronic
- Likely multifactorial related to deconditioning and poor oral intake
- At baseline prior to recent hospitalization, uses walker at home, lives independently at [facility]-way community. Last hospitalization- PT recommended SNF but patient opted for home with VN.
- Continue PT/OT- rec SNF at discharge- CM following, If family is refusing SNF, PT rec increased help at home to reduce risk of falls.
- Medically stable for discharge pending safe rehab plan and/or placement
Constipation
- Obstruction series negative
- S/p M/M enema, senna-S which produced BM
- Continue standing senna/docusate BID
Chronic HFpEF, not in acute exacerbation
Valvular heart disease: mod MR, mod-sev TR, s/p bioprosthetic aortic valve replacement
- Recent echo stable compared to Dec 2023
- Continue home lasix 20mg po daily
- Daily weights, I&Os, low Na diet, fluid restrict
- Daily weight 60.1 down from admission and last hospitalization
Paroxysmal atrial fibrillation
Sick sinus syndrome s/p pacemaker
- NSR, rate is paced
- Continue home eliquis and metoprolol
Hypokalemia
- K 4.0 today after supplementation
- Continue to monitor daily BMP while hospitalized
Chronic anemia, suspect anemia of chronic disease
- Hgb 11.2 on admission, appears at baseline --> 10.2 today
- No signs of acute blood loss or ongoing bleeding/bruising
- Recent Fe studies from prior hospitalization showed no iron deficiency
- Folate, B12 normal
Chronic R shoulder pain, opioid dependence, neuropathy- continue home fentanyl patch, lyrica
Myasthenia gravis- continue home mycophenolate mofetil
Hypothyroidism- continue home synthroid 100mcg qd; recent tsh wnl
Hyperlipidemia- continue atorvastatin
CAD s/p CABG- continue ASA
Anxiety/depression- continue xanax, zoloft
Code status: DNR
VTE ppx: eliquis
Diet: Low sodium, cholesterol lowering
Dispo planning: TBD, PT/OT rec SNF
Anticipated Discharge: Within 24 hours
Subjective/Interval History
-
Date of Service: September 27, 2024
No acute events overnight. No new complaints. Reports chronic right shoulder pain/neuropathy, feeling weak and shaky. Says she feels too tired for breathing but denies new shortness of breath. Denies dizziness, chest pain, nausea, vomiting,
abdominal pain, diarrhea, constipation. Last BM last night, no black or bloody stools. Ambulating with PT/OT.
Objective Data
-
Labs:
Laboratory Results
09/27/24
05:49
WBC 6.8
Hgb 10.3 L
Hct 31.9 L
Plt Count 212
Sodium 141
Potassium 4.1
Chloride 101
Carbon Dioxide 29
BUN 22 H
Creatinine 0.7
Glucose 101 H
Calcium 9.7
Vital Signs:
Vital Signs
Temp Pulse Resp BP Pulse Ox
97.9 F 61 16 130/50 94
09/27/24 07:00 09/27/24 07:00 09/27/24 07:00 09/27/24 07:00 09/27/24 07:00
I&O
09/26/24 09/27/24 09/28/24
06:59 06:59 06:59
Intake Total 1320 / 1320
Balance 1320 / 1320
Review of Systems
-
History Source: Patient
All other systems: Reviewed and negative
Physical Exam
-
General: No Apparent Distress, Comfortable and Conversant
HEENT: Normocephalic and Atraumatic
Respiratory: Clear to Auscultation and Non Labored Respirations; Negative Wheezes
Cardiac: Regular Rhythm and S1/S2
GI: Soft, Nontender, Nondistended and Normal Bowel Sounds
Musculoskeletal: No Edema
Skin: Warm and Dry
Neuro: Awake and Alert
Psych: Calm
Data Reviewed
-
Diagnostic Radiology: Image personally visualized and interpreted and Report Reviewed by me
Labs: Labs Reviewed by me
[2024-09-27 12:00] VITALS: BMI 37.3
--- NOTE | 2024-09-27 13:39 | CM ---
Addendum entered by CORINA Alfaro 09/27/24 14:38:
Gabriella has bed at [facility] Sunday. She has to confirm when they have to show up with check. It could be a Sunday d/c.
Richard will be at sometime Sunday late morning. He is coming down from [facility].
Original Note:
Gabriella liaison for [facility] called to offer bed. Richard, son called and he will call Gabriella.
He asked about transport to SNF. Due to mysthnia Gravis and movement control plan will be stretcher.
CM update Gabriella that son, Richard will call her.
PEr attending patient will be ready tomorrow if SNF bed available.
[2024-09-27 15:00] VITALS: BP 123/48
[2024-09-27 16:14] VITALS: BP 130/50
[2024-09-27] MEDS: DURAGESIC 25 MCG/HR PATCH 1 PATCH TRANSDERM (17:25)
[2024-09-27] MEDS: SENOKOT-S PO (19:51)
[2024-09-27] MEDS: TYLENOL 650 MG PO (19:54)
[2024-09-27 23:00] VITALS: BP 105/68
[2024-09-28] MEDS: SYNTHROID 100 MCG PO (05:49)
[2024-09-28 06:00] LABS: Hematocrit 31.2 % (37.0-47.0); Hemoglobin 10.3 g/dL (12.0-16.0); Mean Corpuscular Hgb 30.5 pg (27.0-31.0); Mean Corpuscular Volume 92.3 fL (81.0-99.0); Platelet Count 215 10^3/uL (130-400); Red Blood Cell Count 3.38 10^6/uL (4.20-5.40); Red Cell Dist. Width 15.7 % (11.5-14.5); White Blood Cell Count 6.8 10^3/uL (4.8-10.8)
[2024-09-28 06:06] LABS: Blood Urea Nitrogen 26 mg/dl (7-17); Calcium 9.8 mg/dl (8.4-10.2); Carbon Dioxide 27 mmol/L (22-30); Chloride 102 mmol/L (98-107); Estimated Creatinine Clearance 33 ml/min; Glucose 99 mg/dl (70-99); Potassium 4.1 mmol/L (3.5-5.1); Sodium 142 mmol/L (135-145); eGFR > 60.00
[2024-09-28 07:00] VITALS: BP 141/67
[2024-09-28] MEDS: ASPIR LOW (ENTERIC COATED) 81 MG PO (07:54)
[2024-09-28] MEDS: XANAX 0.25 MG PO (07:54)
[2024-09-28] MEDS: PROTONIX 40 MG PO (07:54)
[2024-09-28] MEDS: CELLCEPT 500 MG PO (07:55)
[2024-09-28] MEDS: LASIX 20 MG PO (07:55)
[2024-09-28] MEDS: LYRICA 150 MG PO (07:55)
[2024-09-28] MEDS: SENOKOT-S PO (07:56)
[2024-09-28] MEDS: ZOLOFT 50 MG PO (07:56)
[2024-09-28] MEDS: ELIQUIS 5 MG PO (07:56)
[2024-09-28] MEDS: LIPITOR 20 MG PO (07:56)
[2024-09-28] MEDS: TOPROL XL 50 MG PO (07:56)
--- NOTE | 2024-09-28 08:00 | W.PN.HOSP.TC ---
Addendum entered and electronically signed by Marce uDeñas MD 09/28/24 12:41:
I saw and evaluated the patient independently. I reviewed the resident�s note and agree with findings and plan as documented by Dr. Wilkerson.
GENERAL: elderly female in no apparent distress
HEENT: NC/AT
HEART: regular rate and rhythm, +S1, +S2
LUNGS: crackles at bases bilaterally
ABDOM: soft, nontender, nondistended, + bowel sounds
EXT: no cyanosis, clubbing, or edema
NEUROLOGIC: apparent dementia--otherwise grossly intact
Generalized weakness, acute on chronic--Likely multifactorial related to deconditioning and poor oral intake--At baseline prior to recent hospitalization, uses walker at home, lives independently at [facility]. PT recommended SNF but
patient opted for home with VN- PT/OT rec SNF--medically ready for d/c today
Constipation- Obstruction series negative- S/p M/M enema, senna-S which produced BM--Advance diet to low cholesterol/low Na
Chronic HFpEF, not in acute exacerbation --weights down since last admission--Valvular heart disease: mod MR, mod-sev TR, s/p bioprosthetic aortic valve replacement- Recent echo stable compared to Dec 2023- Continue home lasix 20mg po daily-
Daily weights, I&Os, low Na diet, fluid restrict
Paroxysmal atrial fibrillation/Sick sinus syndrome s/p pacemaker-- NSR, rate is paced- Continue home eliquis and metoprolol
Hypokalemia- K today 3.4 --> will supplement today- Daily BMP
Chronic R shoulder pain, opioid dependence, neuropathy--continue home fentanyl patch, lyrica
Myasthenia gravis- continue home mycophenolate mofetil
Hypothyroidism- continue home Synthroid 100mcg qd; recent TSH WNL
Hyperlipidemia- continue atorvastatin
CAD s/p CABG- continue ASA
Anxiety/depression- continue Xanax, Zoloft
Code status: DNR
DVT proph--Eliquis
Original Note:
Today's Communication/Plan
-
discharge planning ongoing
Assessment / Plan
Assessment / Plan
88yo F with PMH aortic stenosis s/p valve replacement, CHF, myasthenia gravis, paroxysmal afib, sick sinus syndrome s/p pacemaker who presented to ED 09/24/24 for generalized weakness. She was recently hospitalized 09/17-09/20; presented to ED for SOB
and abd pain, found to have CHF exacerbation. At discharge from hospital, SNF rehab was recommended but she refused in favor of going home with VN. Since discharge, she has had vomiting, poor oral intake, and constipation.
Generalized weakness, acute on chronic
- Likely multifactorial related to deconditioning and poor oral intake
- At baseline prior to recent hospitalization, uses walker at home, lives independently at [facility]. Last hospitalization- PT recommended SNF but patient opted for home with VN.
- Continue PT/OT- rec SNF at discharge- CM following, Family agreeable to SNF though if not PT rec increased help at home to reduce risk of falls.
- Medically stable for discharge pending safe rehab plan and/or placement
Constipation
- Obstruction series negative
- S/p M/M enema, senna-S which produced BM
- Continue standing senna/docusate BID
Chronic HFpEF, not in acute exacerbation
Valvular heart disease: mod MR, mod-sev TR, s/p bioprosthetic aortic valve replacement
- Recent echo stable compared to Dec 2023
- Continue home lasix 20mg po daily
- Daily weights, I&Os, low Na diet, fluid restrict
- Daily weight 60.1 down from admission and last hospitalization
Paroxysmal atrial fibrillation
Sick sinus syndrome s/p pacemaker
- NSR, rate is paced
- Continue home eliquis and metoprolol
Hypokalemia
- K 4.1 today after supplementation
- Continue to monitor daily BMP while hospitalized
Chronic anemia, suspect anemia of chronic disease
- Hgb 11.2 on admission, appears at baseline --> 10.3 today
- No signs of acute blood loss or ongoing bleeding/bruising
- Recent Fe studies from prior hospitalization showed no iron deficiency
- Folate, B12 normal
Chronic R shoulder pain, opioid dependence, neuropathy- continue home fentanyl patch, lyrica
Myasthenia gravis- continue home mycophenolate mofetil
Hypothyroidism- continue home synthroid 100mcg qd; recent tsh wnl
Hyperlipidemia- continue atorvastatin
CAD s/p CABG- continue ASA
Anxiety/depression- continue xanax, zoloft
Code status: DNR
VTE ppx: eliquis
Diet: Low sodium, cholesterol lowering
Dispo planning: SNF, hopefully today pending bed availability
Anticipated Discharge: Within 24 hours
Subjective/Interval History
-
Date of Service: September 28, 2024
No acute events overnight. No new complaints. Reports chronic right shoulder pain/neuropathy, feeling weak and shaky. Denies lightheadedness, dizziness, chest pain, shortness of breath, nausea, vomiting, abdominal pain, diarrhea, constipation.
Tolerating PO diet, enjoying breakfast this AM. Ambulating with PT, though declined session yesterday.
Objective Data
-
Labs:
Laboratory Results
09/28/24
05:10
WBC 6.8
Hgb 10.3 L
Hct 31.2 L
Plt Count 215
Sodium 142
Potassium 4.1
Chloride 102
Carbon Dioxide 27
BUN 26 H
Creatinine 0.7
Glucose 99
Calcium 9.8
Vital Signs:
Vital Signs
Temp Pulse Resp BP Pulse Ox
97.6 F 71 14 105/68 95
09/27/24 23:00 09/27/24 23:00 09/27/24 23:00 09/27/24 23:00 09/27/24 23:00
I&O
09/27/24 09/28/24 09/29/24
06:59 06:59 06:59
Intake Total 1320 / 1320 420 / 420 240 / 240
Balance 1320 / 1320 420 / 420 240 / 240
Review of Systems
-
History Source: Patient
All other systems: Reviewed and negative
Physical Exam
-
General: No Apparent Distress, Comfortable and Conversant
HEENT: Normocephalic and Atraumatic
Respiratory: Clear to Auscultation and Non Labored Respirations; Negative Wheezes
Cardiac: Regular Rhythm and S1/S2
GI: Soft, Nontender, Nondistended and Normal Bowel Sounds
Musculoskeletal: No Edema
Skin: Warm and Dry
Neuro: Awake and Alert
Psych: Calm
Data Reviewed
-
Diagnostic Radiology: Image personally visualized and interpreted and Report Reviewed by me
Labs: Labs Reviewed by me
[2024-09-28 12:00] VITALS: BMI 37.3
[2024-09-28 14:13] VITALS: BP 128/48
--- NOTE | 2024-09-28 14:27 | W.DCSUMMARY ---
Addendum entered and electronically signed by Marce Dueñas MD 09/28/24 14:49:
Read, reviewed, and agree. See same day progress note for additional details. Time spent coordinating care, DC planning, review of DC plan of care with resident, transition of care, review of records in EMR, med rec, consults, notes, d/w
consultants, nursing, family, and CM = < 30 minutes
Original Note:
Discharge Summary
Discharge Data
Date of Admission: 09/24/24
Date of Discharge: 09/28/24
-
Pending Results: No
Hospital Course
Discharging Physician : Dr. Wilkerson, Dr. Dueñas
Disposition : SN[facility]
Primary care physician : Mercedes Duran
Principal Discharge diagnosis : Generalized weakness, constipation, chronic heart failure preserved ejection fraction (not in acute exacerbation)
Chronic Discharge diagnosis : paroxysmal atrial fibrillation/sick sinus syndrome status post pacemaker, chronic right shoulder pain, myasthenia gravis, hypothyroidism, hyperlipidemia, coronary artery disease status post CABG, anxiety/depression
Hospital Course : Presented to ED 09/24/24 for generalized weakness. She was recently hospitalized 09/17-09/20 after presented to ED for shortness of breath and abdominal pain, and was found to have CHF exacerbation; during that hospitalization PT/OT
recommended SNF rehabilitation but she and family opted for discharge home with VN. During the current hospitalization, she was treated for constipation and PT/OT was consulted for her acute on chronic weakness. Her other conditions remained stable
and she was not in acute exacerbation of heart failure during current hospitalization. PT/OT continued to recommend SNF and CM reviewed with family. On day of discharge, she was stable. She was discharged to SNF for rehabilitation of generalized
weakness. She will follow up with her PCP outpatient.
Important imaging findings :
Chest/abdomen xray 09/24/24
IMPRESSION:
No intestinal obstruction or free air.
Markedly low lung volumes with crowding of central/vascular markings. Mild CHF cannot be excluded, possibly chronic.
Procedure findings : N/A
Discharge Plan
-
Patient Disposition: Custodial/SNF
Discharge Diagnosis/Procedures: Generalized weakness, constipation, chronic heart failure preserved ejection fraction (not in acute exacerbation), paroxysmal atrial fibrillation/sick sinus syndrome status post pacemaker, chronic right shoulder pain,
myasthenia gravis, hypothyroidism, hyperlipidemia, coronary artery disease status post CABG, anxiety/depression
Condition: Fair
Diet: Low Cholesterol and 2 Gram Sodium
Activity: With assistance, As tolerated and With Walker
Driving Restrictions: No driving
Bathing Restrictions: OK to Shower
Specialty Instructions: Weigh Daily- Call MD for wt gain/loss 3 lbs overnight/5 lbs in 1 week
Instructions: Preventing falls in adults, Failure to Thrive, Adult (DC), *PCP/Other Protective Signal Installer Helper Heart Failure Instructions
Referrals:
Mercedes Duran CRNP [Family Provider] - in less than 1 week (Call your Primary Care Provider to schedule appointment within 1 week of hospital discharge)
Luke No MD [Active] - (Call your roller setter to schedule follow up appointment for your heart)
Additional Discharge Medication Instructions: Continue your medications as you were taking them prior to hospitalization
You can use miralax (polyethylene glycol) daily to prevent constipation. If your bowel movements are too soft, try decreasing the dose or changing it to 'as needed.'
Prescriptions:
Continued
atorvastatin 20 mg Tablet
20 mg PO DAILY
mycophenolate mofetil [CellCept] 500 mg Tablet
500 mg PO DAILY
alprazolam [Xanax] 0.25 mg Tablet
0.25 mg PO BID
Patient Comments:
09/24/24: filled #180 tablets/90 day supply on 07/01/24 at [facility] 81
sertraline [Zoloft] 50 mg Tablet
50 mg PO DAILY
pregabalin [Lyrica] 150 mg Capsule
150 mg PO BID
Rx Instructions:
09/24/24: filled #180 caps/90 day supply on 07/08/24 at [facility] [id number]
Prolia 60 mg/mL Syringe
60 mg SC [id number]
Eliquis 5 mg Tablet
5 mg PO BID
pantoprazole [Protonix] 40 mg tablet,delayed release (DR/EC)
40 mg PO BID
metoprolol succinate 50 mg tablet extended release 24 hr
50 mg PO DAILY
levothyroxine 100 mcg tablet
100 mcg PO DAILY AT 0700
aspirin 81 mg Tablet,Delayed Release (Dr/Ec)
81 mg PO DAILY
fentanyl 25 mcg/hr Patch 72 Hour
1 patch TRANSDERMAL Q72H
Rx Instructions:
09/24/24: filled #10 patches/28 day supply on 09/17/24 at [place] [id number]
furosemide 20 mg Tablet
20 mg PO DAILY Qty: 30 0RF
docusate sodium 100 mg Capsule
100 mg PO DAILY Qty: 0 0RF
Discharge Orders:
Discharge Patient (As Directed); Ordered 09/28/24
Ordered By: Mimi Wilkerson
Discharge Date and Time
Print Language: TUVALUAN
--- NOTE | 2024-09-28 14:38 | CM ---
Renetta blackburn pa today.
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
(P) [phone]
(f) [phone]
== END 2024-09-28 15:10 ==
LOC: 3 WEST ACU 17:20
PROVIDERS: Physician Assistant Medical; Student in an Organized Health Care Education/Training Program; ADMITTING PHYSICIAN Hospitalist; ATTENDING PHYSICIAN Internal Medicine; EMERGENCY PHYSICIAN Emergency Medicine; FAMILY PHYSICIAN Nurse Practitioner Primary Care
DX: R53.1 Weakness (principal); K59.00 Constipation, unspecified; R62.7 Adult failure to thrive; I50.32 Chronic diastolic (congestive) heart failure; I11.0 Hypertensive heart disease with heart failure; I48.0 Paroxysmal atrial fibrillation; I25.10 Atherosclerotic heart disease of native coronary artery without angina pectoris; G70.00 Myasthenia gravis without (acute) exacerbation; K21.9 Gastro-esophageal reflux disease without esophagitis; E78.00 Pure hypercholesterolemia, unspecified; F41.1 Generalized anxiety disorder; F32.A Depression, unspecified; M33.20 Polymyositis, organ involvement unspecified; E03.9 Hypothyroidism, unspecified; M81.0 Age-related osteoporosis without current pathological fracture; K44.9 Diaphragmatic hernia without obstruction or gangrene; E78.5 Hyperlipidemia, unspecified; E87.6 Hypokalemia; G62.9 Polyneuropathy, unspecified; D64.9 Anemia, unspecified; M25.511 Pain in right shoulder; R51.9 Headache, unspecified; R11.10 Vomiting, unspecified; R91.8 Other nonspecific abnormal finding of lung field; I08.3 Combined rheumatic disorders of mitral, aortic and tricuspid valves; F11.20 Opioid dependence, uncomplicated; G89.29 Other chronic pain; Z66 Do not resuscitate; Z86.16 Personal history of COVID-19; Z86.73 Personal history of transient ischemic attack (TIA), and cerebral infarction without residual deficits; Z87.440 Personal history of urinary (tract) infections; Z90.49 Acquired absence of other specified parts of digestive tract; Z95.3 Presence of xenogenic heart valve; Z95.1 Presence of aortocoronary bypass graft; Z98.1 Arthrodesis status; Z95.0 Presence of cardiac pacemaker; Z88.5 Allergy status to narcotic agent; Z79.624 Long term (current) use of inhibitors of nucleotide synthesis; Z79.890 Hormone replacement therapy; Z60.2 Problems related to living alone
CPT/HCPCS: 74022; 80048; 80053; 82607; 82746; 82962; 83735; 85025; 85027; 93005; 93288; 97116; 97167; 99285; G0378